=== PATIENT | male | born 1950 | race African-American/Black ===

== ENCOUNTER 2017-09-04 12:23 | Inpatient (IN) | payer MEDICARE, MEDICAID ==
[~2017-09-04] VITALS: Ht 182.9 cm; Wt 87.1 kg
[~2017-09-04 12:23] MED LIST: AMLO10TA80 PO; ASPI-1158 PO; CLON0.1T PO; COR12 PO; DIGO125T82 PO; FURO80TA87 PO; HYDR100T26 PO; ISOS30TA PO; LIP40 PO; LISI40TA4 PO; LOSA50TA3 PO; POTASSIUM PO; PROT40 PO
[2017-09-04] MEDS ORDERED: SODIUM CHLORIDE 0.9% 500 ML IV ONE (12:47)
[2017-09-04 13:56] LABS: BASOPHILS % 0.6 % (0.0-2.0); EOSINOPHILS % 1.1 % (0.0-5.0); HEMATOCRIT. 34.6 % (42.0-52.0); HEMOGLOBIN. 11.8 g/dL (14.0-18.0); LYMPHOCYTES % 16.7 % (20.0-50.0); MEAN CORPUSCULAR HEMOGLOBIN 26.8 pg (28.0-32.0); MEAN CORPUSCULAR VOLUME 78.6 fL (80.0-94.0); MONOCYTES % 14.1 % (2.0-8.0); NEUTROPHILS % 67.5 % (40.0-76.0); PLATELET 207 x1000/uL (130-400); RED CELL DISTRIBUTION WIDTH 13.5 % (11.6-14.6)
[2017-09-04 14:04] LABS: INR 1.1; PROTHROMBIN TIME 10.9 sec (9.4-11.6)
[2017-09-04 14:11] LABS: CARBON DIOXIDE 32 mEq/L (21-32); CHLORIDE 76 mEq/L (98-107); ETHANOL BLOOD < 10 mg/dL; TROPONIN I 0.21 ng/mL (0.00-0.04)
[2017-09-04 14:12] LABS: CREATINE KINASE 258 IU/L (39-308)
[2017-09-04] MEDS ORDERED: SODIUM CHLORIDE 0.9% 1,000 ML IV ONE ×2 (14:25→20:33)
[2017-09-04 14:30] LABS: DIGOXIN 0.1 ng/mL (0.9-2.0)
[2017-09-04] MEDS ORDERED: MAGNESIUM 2 G PREMIX 50 ML IV ONE (14:30)
[2017-09-04] MEDS ORDERED: KCL 20MEQ/100ML PREMIX 100 ML IV ONE (14:30)
[2017-09-04] MEDS ORDERED: ONDANSETRON HCL 4MG/2ML VIAL IV ONE (14:30)
[2017-09-04] MEDS ORDERED: MORPHINE SULFATE 4 MG/ML CPJ (NOT FOR IM USE) IV ONE (14:30)
[2017-09-04 16:12] LABS: AMMONIA 29 uMol/L (<32)
[2017-09-04 16:14] LABS: CLARITY URINE CLOUDY (CLEAR); COLOR URINE YELLOW (YELLOW); GLUCOSE URINE NEGATIVE (NEGATIVE); KETONES URINE NEGATIVE (NEGATIVE); LEUKOCYTE ESTERASE URINE NEGATIVE (NEGATIVE); NITRITE URINE NEGATIVE (NEGATIVE); OCCULT BLOOD URINE 2+ (NEGATIVE); PROTEIN URINE 2+ (NEGATIVE); SPECIFIC GRAVITY URINE 1.015 (1.005-1.030); UROBILINOGEN URINE 0.2 E.U./dL (0.2-1.0)
[2017-09-04 16:25] LABS: *AMPHETAMINES SCREEN URINE NEGATIVE (NEGATIVE); *BARBITURATES SCREEN URINE NEGATIVE (NEGATIVE); *BENZODIAZEPINES SCREEN URINE NEGATIVE (NEGATIVE); *COCAINE SCREEN URINE NEGATIVE (NEGATIVE); CANNABINOID URINE SCREEN NEGATIVE (NEGATIVE); METHADONE URINE SCREEN NEGATIVE (NEGATIVE); OPIATES URINE SCREEN NEGATIVE (NEGATIVE); PHENCYCLIDINE URINE SCREEN NEGATIVE (NEGATIVE)
[2017-09-04] MEDS ORDERED: ASPIRIN 325MG TABLET PO SCH (20:15)
[2017-09-04] MEDS ORDERED: KCL 20MEQ/100ML PREMIX 100 ML IV SCH (20:35)
[2017-09-04] MEDS ORDERED: ASPIRIN 81MG TABLET PO SCH (20:40)
[2017-09-04] MEDS: HYDRALAZINE HCL 50MG TABLET PO SCH (22:50)
[2017-09-04] MEDS: PANTOPRAZOLE 40MG DR TABLET PO SCH (22:50)
[2017-09-04] MEDS: LEVOFLOXACIN 250MG PREMIX 50 ML IV SCH (22:51)
[2017-09-04] MEDS: MORPHINE SULFATE 2 MG/ML CPJ (NOT FOR IM USE) IV PRN (22:52)
[2017-09-04 23:31] VITALS: BP 141/87
[2017-09-05] VITALS: BP 132/67
[2017-09-05 04:46] VITALS: BP 138/77
[2017-09-05] MEDS: PANTOPRAZOLE 40MG DR TABLET PO SCH ×2 (06:09→20:21)
[2017-09-05] MEDS: HYDRALAZINE HCL 50MG TABLET PO SCH ×2 (09:04→20:21)
[2017-09-05 09:05] VITALS: BP 141/71
[2017-09-05 11:20] LABS: HEMATOCRIT. 32.6 % (42.0-52.0); HEMOGLOBIN. 11.1 g/dL (14.0-18.0); MEAN CORPUSCULAR HEMOGLOBIN 26.9 pg (28.0-32.0); MEAN CORPUSCULAR VOLUME 79.2 fL (80.0-94.0); MEAN PLATELET VOLUME 12.3 fl (7.4-10.4); PLATELET 205 x1000/uL (130-400); RED BLOOD CELL COUNT 4.12 mill/uL (4.7-6.1); RED CELL DISTRIBUTION WIDTH 13.1 % (11.6-14.6)
[2017-09-05 11:37] LABS: CARBON DIOXIDE 26 mEq/L (21-32); CHLORIDE 84 mEq/L (98-107)
[2017-09-05 12:30] VITALS: BP 134/70
[2017-09-05] MEDS ORDERED: POTASSIUM CHLORIDE 20MEQ TABLET SR PO NR (12:30)
[2017-09-05 13:29] LABS: PLATELET ESTIMATE NORMAL
[2017-09-05] MEDS ORDERED: SODIUM CHLORIDE 0.9% 1,000 ML IV SCH (16:45)
[2017-09-05 17:33] VITALS: BP 127/65
[2017-09-05] MEDS ORDERED: KCL 20MEQ/100ML PREMIX 100 ML IV NR (20:00)
[2017-09-05] MEDS: SODIUM CHL 0.9% + KCL 20MEQ/L 1,000 ML IV SCH (20:21)
[2017-09-05 20:33] VITALS: BP 140/75
[2017-09-05 21:15] LABS: CREATINE KINASE 249 IU/L (39-308)
[2017-09-06 00:22] VITALS: BP 143/68
[2017-09-06 04:00] VITALS: BP 144/68
[2017-09-06] MEDS: SODIUM CHL 0.9% + KCL 20MEQ/L 1,000 ML IV SCH ×2 (04:20→17:33)
[2017-09-06] MEDS: PANTOPRAZOLE 40MG DR TABLET PO SCH ×2 (06:16→22:38)
[2017-09-06 06:40] LABS: HEMATOCRIT. 28.5 % (42.0-52.0); HEMOGLOBIN. 9.3 g/dL (14.0-18.0); MEAN CORPUSCULAR HEMOGLOBIN 26.1 pg (28.0-32.0); MEAN PLATELET VOLUME 11.9 fl (7.4-10.4); PLATELET 213 x1000/uL (130-400); RED BLOOD CELL COUNT 3.56 mill/uL (4.7-6.1)
[2017-09-06 07:15] LABS: CARBON DIOXIDE 21 mEq/L (21-32); CHLORIDE 89 mEq/L (98-107)
[2017-09-06 08:00] VITALS: BP 148/70
[2017-09-06] MEDS: HYDRALAZINE HCL 50MG TABLET PO SCH ×2 (09:39→22:38)
[2017-09-06] MEDS ORDERED: FUROSEMIDE 20MG/2ML VIAL IVP SCH (12:00)
[2017-09-06] MEDS ORDERED: FUROSEMIDE 20MG/2ML VIAL ONE (12:29)
[2017-09-06 13:27] LABS: NUCLEATED RED BLOOD CELLS 1 /100 WBC; PLATELET ESTIMATE NORMAL
[2017-09-06] MEDS ORDERED: EPOETIN ALFA 10000UNITS/ML VIAL SUBCUT SCH (14:00)
[2017-09-06] MEDS ORDERED: DEXTROSE 50% WATER 50ML SYRINGE IV PRN (17:15)
[2017-09-06] MEDS: BLOOD SUGAR DIAGNOSTIC STRIP TEST SCH ×2 (17:35→21:12)
[2017-09-06] MEDS: INSULIN LISPRO 100 UNITS/ML SUBCUT SCH ×2 (17:35→22:35)
[2017-09-06 20:00] VITALS: BP 143/69
[2017-09-06] MEDS: INSULIN DETEMIR UD 100 UNITS/ML SYR SUBCUT SCH (23:21)
[2017-09-07] VITALS: BP 143/70
[2017-09-07] MEDS: LEVOFLOXACIN 250MG PREMIX 50 ML IV SCH ×2 (00:19→00:24)
[2017-09-07] MEDS: SODIUM CHL 0.9% + KCL 20MEQ/L 1,000 ML IV SCH ×2 (03:25→06:51)
[2017-09-07 04:00] VITALS: BP 136/73
[2017-09-07 06:36] LABS: BASOPHILS % 0.6 % (0.0-2.0); EOSINOPHILS % 1.4 % (0.0-5.0); HEMATOCRIT. 24.4 % (42.0-52.0); HEMOGLOBIN. 8.3 g/dL (14.0-18.0); LYMPHOCYTES % 9.3 % (20.0-50.0); MEAN CORPUSCULAR HEMOGLOBIN 27.2 pg (28.0-32.0); MEAN CORPUSCULAR VOLUME 80.1 fL (80.0-94.0); MEAN PLATELET VOLUME 12.1 fl (7.4-10.4); MONOCYTES % 12.2 % (2.0-8.0); NEUTROPHILS % 76.5 % (40.0-76.0); PLATELET 191 x1000/uL (130-400); RED BLOOD CELL COUNT 3.05 mill/uL (4.7-6.1)
[2017-09-07] MEDS: BLOOD SUGAR DIAGNOSTIC STRIP TEST SCH ×4 (06:42→21:00)
[2017-09-07] MEDS: PANTOPRAZOLE 40MG DR TABLET PO SCH ×2 (06:49→22:16)
[2017-09-07] MEDS: INSULIN LISPRO 100 UNITS/ML SUBCUT SCH ×4 (07:50→21:00)
[2017-09-07 08:00] VITALS: BP 150/69
[2017-09-07 08:23] LABS: CARBON DIOXIDE 26 mEq/L (21-32); CHLORIDE 94 mEq/L (98-107)
[2017-09-07 08:24] LABS: PHOSPHORUS 4.6 mg/dL (2.5-4.9)
[2017-09-07] MEDS: HYDRALAZINE HCL 50MG TABLET PO SCH ×2 (10:04→22:16)
[2017-09-07 11:29] VITALS: BP 139/72
[2017-09-07] MEDS ORDERED: POTASSIUM CHLORIDE 20MEQ TABLET SR PO NR (11:30)
[2017-09-07] MEDS ORDERED: MANNITOL 12.5G (25%) VIAL 50ML IV NR (16:15)
[2017-09-07 16:18] VITALS: BP 129/70
[2017-09-07 17:14] LABS: TOTAL IRON BINDING CAPACITY 185 ug/dL (250-450)
[2017-09-07] MEDS ORDERED: HEPARIN SODIUM 1,000 UNIT/1ML VIAL IV NR (18:00)
[2017-09-07 18:18] LABS: HEPATITIS B SURFACE AB < 3.1 mIU/mL
[2017-09-07 18:29] LABS: HEPATITIS B SURFACE ANTIGEN NEGATIVE
[2017-09-07 20:00] VITALS: BP 144/85
[2017-09-07] MEDS: INSULIN DETEMIR UD 100 UNITS/ML SYR SUBCUT SCH (22:00)
[2017-09-08] VITALS (16 sets, daily range): BP systolic 103–175; BP diastolic 50–93
[2017-09-08] MEDS: SODIUM CHL 0.9% + KCL 20MEQ/L 1,000 ML IV SCH (00:50)
[2017-09-08] MEDS: MORPHINE SULFATE 2 MG/ML CPJ (NOT FOR IM USE) IV PRN (01:02)
[2017-09-08 06:51] LABS: BASOPHILS % 0.3 % (0.0-2.0); LYMPHOCYTES % 11.6 % (20.0-50.0); MEAN CORPUSCULAR HEMOGLOBIN 27.2 pg (28.0-32.0); MEAN PLATELET VOLUME 11.5 fl (7.4-10.4); MONOCYTES % 11.6 % (2.0-8.0); NEUTROPHILS % 75.5 % (40.0-76.0); PLATELET 169 x1000/uL (130-400); RED BLOOD CELL COUNT 2.49 mill/uL (4.7-6.1); RED CELL DISTRIBUTION WIDTH 13.6 % (11.6-14.6)
[2017-09-08 07:00] LABS: HEMATOCRIT. 20.7 % (42.0-52.0); HEMOGLOBIN. 6.8 g/dL (14.0-18.0)
[2017-09-08] MEDS: BLOOD SUGAR DIAGNOSTIC STRIP TEST SCH ×4 (07:19→21:00)
[2017-09-08] MEDS ORDERED: LACTULOSE 20G/30ML UDC PO NR (08:30)
[2017-09-08] MEDS ORDERED: LACTULOSE 20G/30ML UDC PO PRN (08:30)
[2017-09-08] MEDS: PANTOPRAZOLE 40MG DR TABLET PO SCH ×2 (09:27→23:11)
[2017-09-08] MEDS: HYDRALAZINE HCL 50MG TABLET PO SCH ×2 (09:27→21:00)
[2017-09-08] MEDS: INSULIN LISPRO 100 UNITS/ML SUBCUT SCH ×4 (09:30→23:15)
[2017-09-08] MEDS ORDERED: LIDOCAINE HCL 1% 20ML VIAL (Pyxis) INJ ONE (10:04)
[2017-09-08] MEDS ORDERED: SODIUM BICARBONATE 4% (2.4MEQ) 5ML VIAL IV ONE (10:04)
[2017-09-08] MEDS ORDERED: FENTANYL CITRATE/PF 50MCG/ML 2ML VIAL IV ONE (10:35)
[2017-09-08] MEDS ORDERED: FENTANYL CITRATE/PF 50MCG/ML 2ML VIAL ONE (10:45)
[2017-09-08] MEDS ORDERED: HYDROCODONE/ACETAMINOPHEN 5/325MG TABLET PO PRN (11:00)
[2017-09-08] MEDS: LEVOFLOXACIN 250MG TABLET PO SCH (13:04)
[2017-09-08] MEDS: LOSARTAN POTASSIUM 25 MG TABLET PO SCH (13:04)
[2017-09-08] MEDS ORDERED: ACETAMINOPHEN 325MG TABLET PO PRN (18:30)
[2017-09-08 22:44] LABS: HEMATOCRIT 22.2 % (42.0-52.0); HEMOGLOBIN 7.4 g/dL (14.0-18.0)
[2017-09-08] MEDS: CARVEDILOL 3.125 MG TABLET PO SCH (23:12)
[2017-09-08] MEDS: INSULIN DETEMIR UD 100 UNITS/ML SYR SUBCUT SCH (23:16)
[2017-09-09] VITALS: BP 130/67
[2017-09-09 04:00] VITALS: BP 133/69
[2017-09-09] MEDS: BLOOD SUGAR DIAGNOSTIC STRIP TEST SCH ×4 (06:22→21:00)
[2017-09-09] MEDS: PANTOPRAZOLE 40MG DR TABLET PO SCH ×2 (06:22→23:51)
[2017-09-09 06:57] LABS: BASOPHILS % 0.5 % (0.0-2.0); EOSINOPHILS % 1.2 % (0.0-5.0); HEMATOCRIT. 21.5 % (42.0-52.0); HEMOGLOBIN. 7.3 g/dL (14.0-18.0); LYMPHOCYTES % 11.3 % (20.0-50.0); MEAN CORPUSCULAR HEMOGLOBIN 28.5 pg (28.0-32.0); MEAN CORPUSCULAR VOLUME 84.1 fL (80.0-94.0); MEAN PLATELET VOLUME 10.8 fl (7.4-10.4); MONOCYTES % 11.2 % (2.0-8.0); NEUTROPHILS % 75.8 % (40.0-76.0); PLATELET 161 x1000/uL (130-400); RED BLOOD CELL COUNT 2.56 mill/uL (4.7-6.1); RED CELL DISTRIBUTION WIDTH 13.4 % (11.6-14.6)
[2017-09-09 08:00] VITALS: BP 137/70
[2017-09-09] MEDS: LOSARTAN POTASSIUM 25 MG TABLET PO SCH (10:03)
[2017-09-09] MEDS: HYDRALAZINE HCL 50MG TABLET PO SCH ×2 (10:04→23:50)
[2017-09-09] MEDS: CARVEDILOL 3.125 MG TABLET PO SCH ×2 (10:04→23:52)
[2017-09-09] MEDS: INSULIN LISPRO 100 UNITS/ML SUBCUT SCH ×3 (10:08→17:50)
[2017-09-09 12:00] VITALS: BP 140/78
[2017-09-09 16:00] VITALS: BP 131/78
[2017-09-09 20:00] VITALS: BP 135/71
[2017-09-10] VITALS: BP 150/81
[2017-09-10] MEDS: INSULIN LISPRO 100 UNITS/ML SUBCUT SCH ×5 (00:05→21:17)
[2017-09-10] MEDS: EPOETIN ALFA 10000UNITS/ML VIAL SUBCUT SCH (00:08)
[2017-09-10 00:57] VITALS: BP 129/67
[2017-09-10] MEDS: BLOOD SUGAR DIAGNOSTIC STRIP TEST SCH ×4 (07:20→21:00)
[2017-09-10 08:00] VITALS: BP 133/74
[2017-09-10 09:30] LABS: BASOPHILS % 0.6 % (0.0-2.0); EOSINOPHILS % 1.1 % (0.0-5.0); HEMATOCRIT. 26.7 % (42.0-52.0); HEMOGLOBIN. 8.8 g/dL (14.0-18.0); MEAN CORPUSCULAR HEMOGLOBIN 28.5 pg (28.0-32.0); MEAN CORPUSCULAR VOLUME 86.1 fL (80.0-94.0); MEAN PLATELET VOLUME 10.4 fl (7.4-10.4); MONOCYTES % 11.5 % (2.0-8.0); NEUTROPHILS % 75.8 % (40.0-76.0); PLATELET 160 x1000/uL (130-400); RED CELL DISTRIBUTION WIDTH 14.8 % (11.6-14.6)
[2017-09-10] MEDS: CARVEDILOL 3.125 MG TABLET PO SCH ×2 (09:37→21:16)
[2017-09-10] MEDS: HYDRALAZINE HCL 50MG TABLET PO SCH ×2 (09:37→21:15)
[2017-09-10] MEDS: LOSARTAN POTASSIUM 25 MG TABLET PO SCH (09:37)
[2017-09-10] MEDS: PANTOPRAZOLE 40MG DR TABLET PO SCH ×2 (09:38→21:16)
[2017-09-10 12:00] VITALS: BP 157/85
[2017-09-10] MEDS: LEVOFLOXACIN 250MG TABLET PO SCH (13:21)
[2017-09-10 16:00] VITALS: BP 126/61
[2017-09-10 20:00] VITALS: BP 144/76
[2017-09-10] MEDS: INSULIN DETEMIR UD 100 UNITS/ML SYR SUBCUT SCH ×2 (21:16)
[2017-09-11] VITALS (7 sets, daily range): BP systolic 98–176; BP diastolic 50–99
[2017-09-11] MEDS: BLOOD SUGAR DIAGNOSTIC STRIP TEST SCH ×4 (05:59→21:00)
[2017-09-11] MEDS: PANTOPRAZOLE 40MG DR TABLET PO SCH ×2 (05:59→22:15)
[2017-09-11] MEDS: CARVEDILOL 3.125 MG TABLET PO SCH ×2 (08:48→22:14)
[2017-09-11] MEDS: LOSARTAN POTASSIUM 25 MG TABLET PO SCH ×2 (08:48→22:15)
[2017-09-11] MEDS: INSULIN LISPRO 100 UNITS/ML SUBCUT SCH ×4 (08:55→22:16)
[2017-09-11] MEDS: HYDRALAZINE HCL 50MG TABLET PO SCH ×2 (08:57→22:14)
[2017-09-11 12:42] LABS: BASOPHILS % 0.6 % (0.0-2.0); EOSINOPHILS % 1.8 % (0.0-5.0); HEMATOCRIT. 26.3 % (42.0-52.0); HEMOGLOBIN. 8.7 g/dL (14.0-18.0); LYMPHOCYTES % 12.3 % (20.0-50.0); MEAN CORPUSCULAR HEMOGLOBIN 28.4 pg (28.0-32.0); MEAN CORPUSCULAR VOLUME 86.3 fL (80.0-94.0); NEUTROPHILS % 74.3 % (40.0-76.0); PLATELET 174 x1000/uL (130-400); RED BLOOD CELL COUNT 3.05 mill/uL (4.7-6.1); RED CELL DISTRIBUTION WIDTH 14.7 % (11.6-14.6)
[2017-09-11] MEDS: EPOETIN ALFA 10000UNITS/ML VIAL SUBCUT SCH (22:17)
[2017-09-11] MEDS: INSULIN DETEMIR UD 100 UNITS/ML SYR SUBCUT SCH (22:17)
[2017-09-11] MEDS ORDERED: LACTULOSE 20G/30ML UDC PO NR (23:00)
[2017-09-11] MEDS ORDERED: BISACODYL 5MG TABLET PO NR (23:00)
[2017-09-12] VITALS: BP 167/91
[2017-09-12 04:00] VITALS: BP 148/90
[2017-09-12] MEDS: PANTOPRAZOLE 40MG DR TABLET PO SCH ×2 (06:47→21:10)
[2017-09-12] MEDS: INSULIN LISPRO 100 UNITS/ML SUBCUT SCH ×4 (07:50→21:11)
[2017-09-12] MEDS: BLOOD SUGAR DIAGNOSTIC STRIP TEST SCH ×4 (08:05→21:00)
[2017-09-12 08:10] VITALS: BP 174/85
[2017-09-12] MEDS: LOSARTAN POTASSIUM 25 MG TABLET PO SCH ×2 (09:12→21:10)
[2017-09-12] MEDS: HYDRALAZINE HCL 50MG TABLET PO SCH ×3 (09:12→16:51)
[2017-09-12] MEDS: CARVEDILOL 3.125 MG TABLET PO SCH ×2 (09:13→21:10)
[2017-09-12 09:20] LABS: CHLORIDE 110 mEq/L (98-107)
[2017-09-12 09:40] LABS: CARBON DIOXIDE 25 mEq/L (21-32)
[2017-09-12 12:00] VITALS: BP 137/72
[2017-09-12] MEDS ORDERED: LACTULOSE 20G/30ML UDC PO PRN (12:45)
[2017-09-12] MEDS: DOCUSATE SODIUM 100MG CAPSULE PO SCH (16:50)
[2017-09-12 20:00] VITALS: BP 158/74
[2017-09-12] MEDS: INSULIN DETEMIR UD 100 UNITS/ML SYR SUBCUT SCH (21:12)
[2017-09-13] VITALS: BP 152/60
[2017-09-13 04:00] VITALS: BP 162/100
[2017-09-13] MEDS: BLOOD SUGAR DIAGNOSTIC STRIP TEST SCH ×4 (06:26→21:00)
[2017-09-13] MEDS: PANTOPRAZOLE 40MG DR TABLET PO SCH ×2 (06:26→21:28)
[2017-09-13] MEDS ORDERED: CLONIDINE 0.1MG TABLET PO PRN (06:45)
[2017-09-13] MEDS: INSULIN LISPRO 100 UNITS/ML SUBCUT SCH ×4 (07:36→21:00)
[2017-09-13 08:07] LABS: BASOPHILS % 0.9 % (0.0-2.0); EOSINOPHILS % 2.3 % (0.0-5.0); HEMATOCRIT. 28.8 % (42.0-52.0); HEMOGLOBIN. 9.7 g/dL (14.0-18.0); LYMPHOCYTES % 14.2 % (20.0-50.0); MEAN CORPUSCULAR HEMOGLOBIN 29.6 pg (28.0-32.0); MEAN CORPUSCULAR VOLUME 87.6 fL (80.0-94.0); MEAN PLATELET VOLUME 10.2 fl (7.4-10.4); MONOCYTES % 10.9 % (2.0-8.0); NEUTROPHILS % 71.7 % (40.0-76.0); PLATELET 276 x1000/uL (130-400); RED BLOOD CELL COUNT 3.28 mill/uL (4.7-6.1); RED CELL DISTRIBUTION WIDTH 15.8 % (11.6-14.6)
[2017-09-13 08:45] VITALS: BP 135/81
[2017-09-13] MEDS: HYDRALAZINE HCL 50MG TABLET PO SCH ×3 (09:11→16:32)
[2017-09-13] MEDS: LOSARTAN POTASSIUM 25 MG TABLET PO SCH ×2 (09:11→21:28)
[2017-09-13] MEDS: CARVEDILOL 3.125 MG TABLET PO SCH ×2 (09:12→21:28)
[2017-09-13] MEDS: DOCUSATE SODIUM 100MG CAPSULE PO SCH ×2 (09:12→16:27)
[2017-09-13 13:31] VITALS: BP 157/84
[2017-09-13] MEDS ORDERED: POTASSIUM CHLORIDE 20MEQ TABLET SR PO NR (14:15)
[2017-09-13 16:00] VITALS: BP 136/65
[2017-09-13 20:00] VITALS: BP 149/80
[2017-09-13] MEDS: INSULIN DETEMIR UD 100 UNITS/ML SYR SUBCUT SCH (21:29)
[2017-09-14] VITALS: BP 149/68
[2017-09-14 04:00] VITALS: BP 141/78
[2017-09-14 05:40] VITALS: BP 116/71
[2017-09-14] MEDS: PANTOPRAZOLE 40MG DR TABLET PO SCH (06:10)
[2017-09-14] MEDS: BLOOD SUGAR DIAGNOSTIC STRIP TEST SCH (06:10)
[2017-09-14 07:06] LABS: BASOPHILS % 0.6 % (0.0-2.0); EOSINOPHILS % 1.4 % (0.0-5.0); HEMATOCRIT. 30.7 % (42.0-52.0); HEMOGLOBIN. 10.1 g/dL (14.0-18.0); MEAN CORPUSCULAR HEMOGLOBIN 29.4 pg (28.0-32.0); MEAN CORPUSCULAR VOLUME 88.8 fL (80.0-94.0); MEAN PLATELET VOLUME 9.8 fl (7.4-10.4); MONOCYTES % 10.6 % (2.0-8.0); NEUTROPHILS % 75.4 % (40.0-76.0); PLATELET 208 x1000/uL (130-400); RED BLOOD CELL COUNT 3.45 mill/uL (4.7-6.1); RED CELL DISTRIBUTION WIDTH 15.7 % (11.6-14.6)
[2017-09-14] MEDS: CARVEDILOL 3.125 MG TABLET PO SCH (07:52)
[2017-09-14] MEDS: HYDRALAZINE HCL 50MG TABLET PO SCH ×2 (07:52→08:27)
[2017-09-14] MEDS: LOSARTAN POTASSIUM 25 MG TABLET PO SCH (07:52)
[2017-09-14 08:00] VITALS: BP 93/57
[2017-09-14] MEDS: INSULIN LISPRO 100 UNITS/ML SUBCUT SCH (08:29)
[2017-09-14] MEDS: DOCUSATE SODIUM 100MG CAPSULE PO SCH (08:30)
[2017-09-14 11:30] VITALS: BP 153/80
[2017-09-14 11:38] VITALS: BP 153/80
== END 2017-09-14 13:10 | DRG 438 ==
LOC: ER 14:30 → 6WST 14:34 → ER 15:42 → ENRESERV 17:57 → 6WST 09-13 10:00
PROVIDERS: ADMIT Internal Medicine; ATTEND Internal Medicine
PROC: 05HM33Z Insertion of Infusion Device into Right Internal Jugular Vein, Percutaneous Approach (ICD-10-PCS; principal; 2017-09-07)
PROC: B543ZZA Ultrasonography of Right Jugular Veins, Guidance (ICD-10-PCS; 2017-09-07)
PROC: 02HV33Z Insertion of Infusion Device into Superior Vena Cava, Percutaneous Approach (ICD-10-PCS; 2017-09-08)
PROC: B5181ZA Fluoroscopy of Superior Vena Cava using Low Osmolar Contrast, Guidance (ICD-10-PCS; 2017-09-08)
PROC: 30233N1 Transfusion of Nonautologous Red Blood Cells into Peripheral Vein, Percutaneous Approach (ICD-10-PCS; 2017-09-10)
DX: K85.90 Acute pancreatitis without necrosis or infection, unspecified (principal); G93.40 Encephalopathy, unspecified; N17.9 Acute kidney failure, unspecified; I13.0 Hypertensive heart and chronic kidney disease with heart failure and stage 1 through stage 4 chronic kidney disease, or unspecified chronic kidney disease; E11.22 Type 2 diabetes mellitus with diabetic chronic kidney disease; R65.10 Systemic inflammatory response syndrome (SIRS) of non-infectious origin without acute organ dysfunction; I50.9 Heart failure, unspecified; N18.6 End stage renal disease; N39.0 Urinary tract infection, site not specified; D72.829 Elevated white blood cell count, unspecified; E79.0 Hyperuricemia without signs of inflammatory arthritis and tophaceous disease; E87.6 Hypokalemia; D64.9 Anemia, unspecified; E86.0 Dehydration; Z75.1 Person awaiting admission to adequate facility elsewhere; Z79.899 Other long term (current) drug therapy; Z79.82 Long term (current) use of aspirin; Z86.73 Personal history of transient ischemic attack (TIA), and cerebral infarction without residual deficits
CPT/HCPCS: 36415; 36556; 36558; 36589; 70450; 71010; 72100; 76700; 76770; 76937; 77001; 78707; 80048; 80053; 80162; 80305; 80307; 80329; 81001; 82140; 82550; 82962; 83036; 83540; 83550; 83605; 83690; 83735; 83880; 83970; 84100; 84443; 84484; 84550; 85014; 85018; 85025; 85610; 86705; 86706; 86803; 86850; 86900; 86920; 87040; 87086; 87340; 93005; 93970; 96365; 97110; 97116; 97162; 97165; 97530; 97535; 99285; A9562; C1750; C1752; C1769; G0482; J0885; J1642; J1644; J1815; J1940; J1956; J2150; J2270; J2405; J3010; J3475; J3480; J3490; J7030; J7040; J7050; P9016; A4315

== ENCOUNTER 2019-03-07 11:21 | Inpatient (IN) | payer MEDICARE, MEDICAID ==
[~2019-03-07] VITALS: Ht 172.7 cm; Wt 91.2 kg
[2019-03-07] MEDS ORDERED: SODIUM CHLORIDE 0.9% 500 ML IV ONE (11:44)
[2019-03-07 13:27] LABS: BASOPHILS % 0.7 % (0.0-2.0); EOSINOPHILS % 1.6 % (0.0-5.0); HEMATOCRIT. 30.9 % (42.0-52.0); HEMOGLOBIN. 10.2 g/dL (14.0-18.0); LYMPHOCYTES % 17.1 % (20.0-50.0); MEAN CORPUSCULAR HEMOGLOBIN 30.1 pg (28.0-32.0); MEAN CORPUSCULAR VOLUME 90.8 fL (80.0-94.0); MEAN PLATELET VOLUME 9.2 fl (7.4-10.4); MONOCYTES % 11.7 % (2.0-8.0); NEUTROPHILS % 68.9 % (40.0-76.0); PLATELET 200 x1000/uL (130-400); RED CELL DISTRIBUTION WIDTH 14.2 % (11.6-14.6)
[2019-03-07 13:31] LABS: CHLORIDE 101 mEq/L (98-107)
[2019-03-07] MEDS ORDERED: ASPIRIN 325MG EC TABLET PO NR (14:00)
[2019-03-07] MEDS ORDERED: IOHEXOL-350 100 ML BOTTLE ONE (14:59)
[2019-03-07] MEDS ORDERED: ACETAMINOPHEN 325MG TABLET PO PRN (15:15)
[2019-03-07] MEDS ORDERED: GUAIFENESIN 200MG/10ML SUGAR FREE UDC PO PRN (15:15)
[2019-03-07] MEDS ORDERED: ONDANSETRON HCL 4MG/2ML INJ IV PRN (15:15)
[2019-03-07] MEDS ORDERED: IPRATROPIUM/ALBUTEROL 0.5-3(2.5)MG/3ML NEB INH PRN (15:15)
[2019-03-07] MEDS ORDERED: CLONIDINE 0.1MG TABLET PO PRN (15:15)
[2019-03-07] MEDS ORDERED: DEXTROSE 50% WATER 50ML SYRINGE IV PRN (15:15)
[2019-03-07] MEDS ORDERED: HYDROCODONE/ACETAMINOPHEN 5/325MG TABLET PO PRN (15:15)
[2019-03-07] MEDS ORDERED: DOCUSATE SODIUM 100MG CAPSULE PO PRN (15:15)
[2019-03-07] MEDS ORDERED: DIPHENHYDRAMINE 50MG/ML VIAL IV PRN (15:15)
[2019-03-07] MEDS ORDERED: LORAZEPAM 0.5MG TABLET PO PRN (15:15)
[2019-03-07] MEDS ORDERED: MAGNESIUM/ALUMINUM HYDROXIDE/SIMETHICONE 30ML UDC PO PRN (15:15)
[2019-03-07] MEDS ORDERED: ACETAMINOPHEN 650MG SUPP PR PRN (15:15)
[2019-03-07 16:35] VITALS: BP 112/69
[2019-03-07 16:35] LABS: PHOSPHORUS 4.9 mg/dL (2.5-4.9)
[2019-03-07 16:46] LABS: PROTHROMBIN TIME 10.4 sec (9.6-11.0)
[2019-03-07] MEDS ORDERED: MIDODRINE HCL 5MG TABLET PO NR (17:15)
[2019-03-07] MEDS ORDERED: LOSA50TA20 PO (17:54)
[2019-03-07] MEDS ORDERED: CARV25TA47 PO (17:54)
[2019-03-07] MEDS ORDERED: ASPI-1159 PO (17:54)
[2019-03-07] MEDS: BLOOD SUGAR DIAGNOSTIC STRIP TEST SCH ×2 (17:59→21:05)
[2019-03-07] MEDS: INSULIN LISPRO 100 UNITS/ML SUBCUT SCH ×2 (18:50→21:00)
[2019-03-07 20:00] VITALS: BP 102/51
[2019-03-07] MEDS ORDERED: NA PHOS,M-B/NA PHOS,DI-BA ENEMA 118ML PR PRN (21:00)
[2019-03-07] MEDS: HEPARIN 5000 UNITS/ML VIAL SUBCUT SCH (21:05)
[2019-03-07 22:00] VITALS: BP 131/73
[2019-03-07 23:35] LABS: CREATINE KINASE MB FRACTION 9.2 ng/mL (0.5-3.6)
[2019-03-07 23:51] VITALS: BP 136/68
[2019-03-08] VITALS (7 sets, daily range): BP systolic 82–178; BP diastolic 68–86
[2019-03-08] MEDS: BLOOD SUGAR DIAGNOSTIC STRIP TEST SCH ×3 (06:16→17:12)
[2019-03-08 06:58] LABS: BASOPHILS % 0.7 % (0.0-2.0); EOSINOPHILS % 1.3 % (0.0-5.0); HEMATOCRIT. 32.4 % (42.0-52.0); HEMOGLOBIN. 10.8 g/dL (14.0-18.0); LYMPHOCYTES % 19.7 % (20.0-50.0); MEAN CORPUSCULAR HEMOGLOBIN 30.1 pg (28.0-32.0); MEAN CORPUSCULAR VOLUME 90.6 fL (80.0-94.0); MEAN PLATELET VOLUME 9.7 fl (7.4-10.4); NEUTROPHILS % 69.3 % (40.0-76.0); PLATELET 196 x1000/uL (130-400); RED BLOOD CELL COUNT 3.58 mill/uL (4.7-6.1); RED CELL DISTRIBUTION WIDTH 14.6 % (11.6-14.6)
[2019-03-08] MEDS ORDERED: MIDODRINE HCL 5MG TABLET PO PRN (07:00)
[2019-03-08 07:12] LABS: CHLORIDE 102 mEq/L (98-107)
[2019-03-08] MEDS: INSULIN LISPRO 100 UNITS/ML SUBCUT SCH ×2 (07:40→12:40)
[2019-03-08 07:47] LABS: CREATINE KINASE 202 IU/L (39-308); T4 FREE 1.02 ng/dL (0.76-1.46)
[2019-03-08 07:48] LABS: CREATINE KINASE MB FRACTION 9.7 ng/mL (0.5-3.6); HDL CHOLESTEROL 68 mg/dL (40-59)
[2019-03-08 07:49] LABS: LDL CHOLESTEROL 111 mg/dL (5-100)
[2019-03-08] MEDS: HEPARIN 5000 UNITS/ML VIAL SUBCUT SCH (08:42)
[2019-03-08] MEDS ORDERED: ASPIRIN 81MG EC TABLET PO SCH (09:00)
[2019-03-08] MEDS ORDERED: REGADENOSON 0.4 MG/5 ML IV NR (09:45)
[2019-03-08] MEDS ORDERED: CARVEDILOL 3.125 MG TABLET PO SCH (09:45)
[2019-03-08] MEDS ORDERED: REGADENOSON 0.4 MG/5 ML IV ONE (11:07)
[2019-03-08] MEDS ORDERED: CLONIDINE 0.1MG TABLET PO SCH (13:00)
[2019-03-08] MEDS ORDERED: LOSARTAN POTASSIUM 50 MG TABLET PO SCH (21:00)
[2019-03-08] MEDS ORDERED: ATORVASTATIN CALCIUM 10MG TABLET PO SCH (21:00)
== END 2019-03-08 17:53 | disposition home or self-care (01) | DRG 73 ==
LOC: ER 11:21 → 8WST 13:46 → EDBEDREQTM 13:47 → EDBEDREQ 13:47 → ENRESERV 15:16
PROVIDERS: ADMIT Internal Medicine; ATTEND Internal Medicine
DX: G90.8 Other disorders of autonomic nervous system (principal); N18.6 End stage renal disease; I50.43 Acute on chronic combined systolic (congestive) and diastolic (congestive) heart failure; I13.2 Hypertensive heart and chronic kidney disease with heart failure and with stage 5 chronic kidney disease, or end stage renal disease; I95.3 Hypotension of hemodialysis; E86.9 Volume depletion, unspecified; R59.9 Enlarged lymph nodes, unspecified; I44.7 Left bundle-branch block, unspecified; E78.5 Hyperlipidemia, unspecified; D64.9 Anemia, unspecified; K80.20 Calculus of gallbladder without cholecystitis without obstruction; R94.31 Abnormal electrocardiogram [ECG] [EKG]; K44.9 Diaphragmatic hernia without obstruction or gangrene; E11.22 Type 2 diabetes mellitus with diabetic chronic kidney disease; Z99.2 Dependence on renal dialysis; Z79.4 Long term (current) use of insulin
CPT/HCPCS: 36415; 71045; 71275; 78452; 80061; 82550; 82553; 82962; 83036; 83605; 83735; 83880; 84100; 84439; 84443; 84484; 93005; 93017; 93306; 93970; 96360; 97161; 99285; A9500; J1644; J1815; J2405; J2785; J7030; Q9967

== ENCOUNTER 2021-05-06 07:27 | Inpatient (IN) | payer MEDICARE, MEDICAID ==
[~2021-05-06] VITALS: Ht 172.7 cm; Wt 80.4 kg
[2021-05-06] VITALS (44 sets, daily range): BP systolic 90–158; BP diastolic 28–118
[~2021-05-06 07:27] MED LIST changes: -AMLO10TA80 PO; -ASPI-1158 PO; +ASPI-1497 PO; +CARV25TA47 PO; -CLON0.1T PO; -COR12 PO; -DIGO125T82 PO; -FURO80TA87 PO; -HYDR100T26 PO; -ISOS30TA PO; -LIP40 PO; -LISI40TA4 PO; -LOSA50TA3 PO; +LOSA50TA41 PO; -POTASSIUM PO; -PROT40 PO
[2021-05-06] MEDS ORDERED: ONDANSETRON HCL 4MG/2ML INJ IV STA ×2 (07:55→09:07)
[2021-05-06] MEDS ORDERED: PIPERACILLIN/TAZ 3.375G PREMIX 50 ML IV ONE (08:00)
[2021-05-06] MEDS ORDERED: SODIUM CHLORIDE 0.9% 1,000 ML IV ONE (08:00)
[2021-05-06] MEDS ORDERED: VANCOMYCIN 1 G PREMIX 200 ML IV ONE (08:00)
[2021-05-06 08:24] LABS: MEAN CORPUSCULAR HEMOGLOBIN 27.1 pg (28.0-32.0); MEAN CORPUSCULAR VOLUME 88.4 fL (80.0-94.0); MEAN PLATELET VOLUME 9.9 fl (7.4-10.4); PLATELET 266 x1000/uL (130-400); RED BLOOD CELL COUNT 1.53 mill/uL (4.7-6.1); RED CELL DISTRIBUTION WIDTH 16.4 % (11.6-14.6)
[2021-05-06 08:30] LABS: BG FRACTION INSPIRED OXYGEN 21; BG HCO3 ACT 18.1 mmol/L (22.0-26.0); BG PCO2 24.2 mmHg (35.0-45.0); BG PH 7.491 (7.350-7.450); BG PO2 113.3 mmHg (75.0-100.0); BG SAMPLE SITE RIGHT BRACHIAL; BG TOTAL HEMOGLOBIN < 4.5 g/dL (12.0-18.0); BG VENT MODE ROOM AIR
[2021-05-06] MEDS ORDERED: PANTOPRAZOLE SODIUM 40 MG/VIAL IV SCH (08:30)
[2021-05-06 08:32] LABS: CHLORIDE 110 mEq/L (98-107)
[2021-05-06 08:34] LABS: HEMATOCRIT. 13.5 % (42.0-52.0); HEMOGLOBIN. 4.1 g/dL (14.0-18.0)
[2021-05-06 08:36] LABS: INR 1.2
[2021-05-06] MEDS ORDERED: SODIUM CHLORIDE 0.9% 1000ML BAG (SEPSIS BOLUS) IV ONE (09:00)
[2021-05-06] MEDS ORDERED: MORPHINE SULFATE 4 MG/ML CPJ (NOT FOR IM USE) IV STA ×2 (09:07→09:08)
[2021-05-06] MEDS ORDERED: DEXTROSE 50% WATER 50ML SYRINGE IV ONE (10:00)
[2021-05-06] MEDS ORDERED: CALCIUM GLUCONATE 1,000 MG in DEXT 5% WATER 100 ML IV ONE (10:00)
[2021-05-06] MEDS ORDERED: INSULIN REGULAR (HUMULIN R) 300UNITS/3ML VIAL IV ONE (10:00)
[2021-05-06] MEDS ORDERED: SODIUM BICARBONATE 8.4% 1 MEQ/ML 50ML SYR IV ONE (10:00)
[2021-05-06] MEDS ORDERED: CALCIUM GLUCONATE 1GM PREMIX 50 ML IV SCH (10:15)
[2021-05-06] MEDS ORDERED: NOREPINEPHRINE 32 MG in DEXT 5% WATER 218 ML IV PRN (11:30)
[2021-05-06] MEDS ORDERED: ONDANSETRON HCL 4MG/2ML INJ IV PRN (11:30)
[2021-05-06] MEDS ORDERED: PIPERACILLIN/TAZOBACTAM 2.25 G in DEXTROSE 5% WATER 50 ML IV SCH (11:30)
[2021-05-06] MEDS ORDERED: DIPHENHYDRAMINE 50MG/ML VIAL IV PRN (11:30)
[2021-05-06] MEDS ORDERED: LORAZEPAM 2MG/ML CPJ IV PRN (11:30)
[2021-05-06] MEDS ORDERED: IPRATROPIUM/ALBUTEROL 0.5-3(2.5)MG/3ML NEB NEB PRN (11:30)
[2021-05-06] MEDS ORDERED: DEXTROSE 50% WATER 50ML SYRINGE IV PRN (11:30)
[2021-05-06 12:08] LABS: TOTAL IRON BINDING CAPACITY 142 ug/dL (250-450)
[2021-05-06 12:39] LABS: VITAMIN B12 SERUM 804 pg/mL (211-911)
[2021-05-06] MEDS: BLOOD SUGAR DIAGNOSTIC STRIP TEST SCH ×3 (13:00→21:18)
[2021-05-06] MEDS ORDERED: VANCOMYCIN 1 G PREMIX 200 ML IV SCH (13:00)
[2021-05-06] MEDS: INSULIN LISPRO 100 UNITS/ML SUBCUT SCH ×3 (13:20→21:00)
[2021-05-06 13:31] LABS: PLATELET ESTIMATE NORMAL
[2021-05-06 13:55] LABS: HEPATITIS B SURFACE ANTIGEN NEGATIVE
[2021-05-06] MEDS: PIPERACILLIN/TAZOBACTAM 2.25G in DEXTROSE 5% WATER 50ML IV SCH (14:00)
[2021-05-06] MEDS ORDERED: LIDOCAINE HCL 1% 20ML VIAL (Pyxis) INJ ONE (14:13)
[2021-05-06 14:24] LABS: HEPATITIS A AB IGM NEGATIVE (NEGATIVE)
[2021-05-06] MEDS ORDERED: VANCOMYCIN 1 G PREMIX 200 ML IV NR (14:30)
[2021-05-06 14:52] LABS: FERRITIN 3050 ng/mL (22-322)
[2021-05-06 17:43] LABS: CREATINE KINASE MB FRACTION 8.9 ng/mL (0.5-3.6)
[2021-05-06] MEDS: DEXT 5%/0.45% NACL 1000ML 1,000 ML IV SCH (18:14)
[2021-05-06 19:25] LABS: HEMOGLOBIN 8.8 g/dL (14.0-18.0)
[2021-05-06] MEDS: PANTOPRAZOLE SODIUM 40 MG/VIAL IV SCH (22:18)
[2021-05-07] VITALS (47 sets, daily range): BP systolic 126–180; BP diastolic 61–104
[2021-05-07] MEDS: PIPERACILLIN/TAZOBACTAM 2.25G in DEXTROSE 5% WATER 50ML IV SCH ×4 (00:10→23:32)
[2021-05-07] MEDS ORDERED: DILTIAZEM HCL 125 MG in DEXT 5% WATER 100 ML IV PRN (00:15)
[2021-05-07 05:55] LABS: HEMATOCRIT 24.9 % (42.0-52.0); HEMOGLOBIN 8.1 g/dL (14.0-18.0)
[2021-05-07 06:03] LABS: CHLORIDE 106 mEq/L (98-107)
[2021-05-07 06:15] LABS: HDL CHOLESTEROL 41 mg/dL (40-59); LDL CHOLESTEROL 51 mg/dL (5-100); T4 FREE 0.81 ng/dL (0.76-1.46)
[2021-05-07 06:29] LABS: FOLIC ACID (FOLATE) SERUM 4.1 ng/mL (>5.38)
[2021-05-07] MEDS ORDERED: HEPARIN 1000 UNITS/ML 10ML ONE (07:31)
[2021-05-07] MEDS: MORPHINE SULFATE 2 MG/ML CPJ (NOT FOR IM USE) IV PRN ×4 (07:53→22:27)
[2021-05-07] MEDS: BLOOD SUGAR DIAGNOSTIC STRIP TEST SCH ×4 (07:59→20:07)
[2021-05-07] MEDS: INSULIN LISPRO 100 UNITS/ML SUBCUT SCH ×4 (07:59→20:14)
[2021-05-07] MEDS: PANTOPRAZOLE SODIUM 40 MG/VIAL IV SCH ×2 (08:18→20:10)
[2021-05-07] MEDS: DEXT 5%/0.45% NACL 1000ML 1,000 ML IV SCH (08:18)
[2021-05-07] MEDS: FOLIC ACID 1MG TABLET PO SCH (10:30)
[2021-05-07] MEDS ORDERED: VANCOMYCIN 1 G PREMIX 200 ML IV NR (11:00)
[2021-05-07 12:39] LABS: HEMATOCRIT. 22.4 % (42.0-52.0); MEAN CORPUSCULAR VOLUME 84.4 fL (80.0-94.0); MEAN PLATELET VOLUME 9.4 fl (7.4-10.4); PLATELET 177 x1000/uL (130-400); RED BLOOD CELL COUNT 2.66 mill/uL (4.7-6.1); RED CELL DISTRIBUTION WIDTH 15.8 % (11.6-14.6)
[2021-05-07 13:24] LABS: PLATELET ESTIMATE NORMAL
[2021-05-07 14:44] LABS: HEPATITIS B SURFACE ANTIGEN NEGATIVE
[2021-05-07 15:14] LABS: HEPATITIS A AB IGM NEGATIVE (NEGATIVE)
[2021-05-07 17:58] LABS: HEMOGLOBIN 7.4 g/dL (14.0-18.0)
[2021-05-07] MEDS: EPOETIN ALFA-EPBX 10,000 UNIT/ML VIAL SUBCUT SCH (20:10)
[2021-05-07] MEDS: HYDRALAZINE 20MG/ML VIAL IV PRN (23:32)
[2021-05-08] VITALS (7 sets, daily range): BP systolic 118–165; BP diastolic 43–82
[2021-05-08 00:46] LABS: HEMATOCRIT 26.1 % (42.0-52.0); HEMOGLOBIN 8.6 g/dL (14.0-18.0)
[2021-05-08] MEDS: DEXT 5%/0.45% NACL 1000ML 1,000 ML IV SCH (04:27)
[2021-05-08] MEDS: PIPERACILLIN/TAZOBACTAM 2.25G in DEXTROSE 5% WATER 50ML IV SCH ×3 (05:10→21:30)
[2021-05-08] MEDS: BLOOD SUGAR DIAGNOSTIC STRIP TEST SCH ×4 (06:25→21:09)
[2021-05-08 06:52] LABS: INR 1.1; PROTHROMBIN TIME 11.4 sec (9.6-11.0)
[2021-05-08 07:00] LABS: HEMOGLOBIN. 9.1 g/dL (14.0-18.0); MEAN CORPUSCULAR HEMOGLOBIN 29.7 pg (28.0-32.0); MEAN CORPUSCULAR VOLUME 85.3 fL (80.0-94.0); MEAN PLATELET VOLUME 9.5 fl (7.4-10.4); PLATELET 191 x1000/uL (130-400); RED BLOOD CELL COUNT 3.05 mill/uL (4.7-6.1); RED CELL DISTRIBUTION WIDTH 15.6 % (11.6-14.6)
[2021-05-08] MEDS: INSULIN LISPRO 100 UNITS/ML SUBCUT SCH ×4 (07:50→21:00)
[2021-05-08] MEDS ORDERED: MIDAZOLAM HCL 5 MG/5 ML VIAL ONE (11:11)
[2021-05-08] MEDS ORDERED: FENTANYL CITRATE/PF 50MCG/ML 2ML VIAL ONE (11:12)
[2021-05-08] MEDS ORDERED: MIDAZOLAM HCL 5 MG/5 ML VIAL IV PRN (11:22)
[2021-05-08] MEDS ORDERED: DIPHENHYDRAMINE 50MG/ML VIAL IV PRN (11:25)
[2021-05-08] MEDS ORDERED: DIPHENHYDRAMINE 50MG/ML VIAL ONE (11:33)
[2021-05-08 14:29] LABS: PLATELET ESTIMATE NORMAL
[2021-05-08] MEDS: FOLIC ACID 1MG TABLET PO SCH (15:13)
[2021-05-08] MEDS: SUCRALFATE 1 G/10 ML UDC PO SCH ×3 (15:17→21:09)
[2021-05-08 16:09] LABS: HEMATOCRIT 25.8 % (42.0-52.0); HEMOGLOBIN 8.9 g/dL (14.0-18.0)
[2021-05-08] MEDS ORDERED: VANCOMYCIN 750 MG PREMIX 150 ML IV NR (20:00)
[2021-05-08] MEDS: PANTOPRAZOLE SODIUM 40 MG/VIAL IV SCH (21:08)
[2021-05-08] MEDS: MORPHINE SULFATE 2 MG/ML CPJ (NOT FOR IM USE) IV PRN (21:30)
[2021-05-09] VITALS (11 sets, daily range): BP systolic 131–179; BP diastolic 41–87
[2021-05-09] MEDS: PIPERACILLIN/TAZOBACTAM 2.25G in DEXTROSE 5% WATER 50ML IV SCH ×3 (06:15→22:09)
[2021-05-09] MEDS: SUCRALFATE 1 G/10 ML UDC PO SCH ×4 (06:15→20:39)
[2021-05-09 06:37] LABS: CHLORIDE 106 mEq/L (98-107)
[2021-05-09] MEDS: BLOOD SUGAR DIAGNOSTIC STRIP TEST SCH ×4 (07:25→20:39)
[2021-05-09] MEDS: INSULIN LISPRO 100 UNITS/ML SUBCUT SCH ×4 (07:50→20:58)
[2021-05-09] MEDS: PANTOPRAZOLE SODIUM 40 MG/VIAL IV SCH ×2 (09:21→20:37)
[2021-05-09] MEDS: FOLIC ACID 1MG TABLET PO SCH (09:21)
[2021-05-09] MEDS: MORPHINE SULFATE 2 MG/ML CPJ (NOT FOR IM USE) IV PRN ×2 (13:35→20:38)
[2021-05-09 15:25] LABS: HEMATOCRIT. 22.6 % (42.0-52.0); HEMOGLOBIN. 7.9 g/dL (14.0-18.0); MEAN CORPUSCULAR VOLUME 86.1 fL (80.0-94.0); MEAN PLATELET VOLUME 9.5 fl (7.4-10.4); PLATELET 176 x1000/uL (130-400); RED BLOOD CELL COUNT 2.62 mill/uL (4.7-6.1); RED CELL DISTRIBUTION WIDTH 15.6 % (11.6-14.6)
[2021-05-09 15:32] LABS: CHLORIDE 104 mEq/L (98-107)
[2021-05-09 16:24] LABS: PLATELET ESTIMATE NORMAL
[2021-05-09] MEDS: HYDRALAZINE 20MG/ML VIAL IV PRN ×2 (17:34→20:37)
[2021-05-09] MEDS: DEXT 5%/0.45% NACL 1000ML 1,000 ML IV SCH ×2 (20:00)
[2021-05-09] MEDS: EPOETIN ALFA-EPBX 10,000 UNIT/ML VIAL SUBCUT SCH (20:41)
[2021-05-10 00:29] LABS: HEMATOCRIT 27.7 % (42.0-52.0); HEMOGLOBIN 9.5 g/dL (14.0-18.0)
[2021-05-10 04:00] VITALS: BP 196/53
[2021-05-10] MEDS: HYDRALAZINE 20MG/ML VIAL IV PRN (05:02)
[2021-05-10] MEDS: MORPHINE SULFATE 2 MG/ML CPJ (NOT FOR IM USE) IV PRN (05:02)
[2021-05-10] MEDS: PIPERACILLIN/TAZOBACTAM 2.25G in DEXTROSE 5% WATER 50ML IV SCH ×3 (05:02→22:00)
[2021-05-10 06:13] LABS: HEMATOCRIT. 27.6 % (42.0-52.0); HEMOGLOBIN. 9.4 g/dL (14.0-18.0); MEAN CORPUSCULAR VOLUME 87.7 fL (80.0-94.0); MEAN PLATELET VOLUME 9.6 fl (7.4-10.4); PLATELET 155 x1000/uL (130-400); RED BLOOD CELL COUNT 3.15 mill/uL (4.7-6.1); RED CELL DISTRIBUTION WIDTH 15.6 % (11.6-14.6)
[2021-05-10] MEDS: SUCRALFATE 1 G/10 ML UDC PO SCH ×4 (06:20→22:15)
[2021-05-10] MEDS: INSULIN LISPRO 100 UNITS/ML SUBCUT SCH ×4 (07:20→21:00)
[2021-05-10] MEDS: BLOOD SUGAR DIAGNOSTIC STRIP TEST SCH ×4 (07:20→21:00)
[2021-05-10 08:18] VITALS: BP 158/74
[2021-05-10] MEDS: PANTOPRAZOLE SODIUM 40 MG/VIAL IV SCH ×2 (08:28→22:16)
[2021-05-10] MEDS: FOLIC ACID 1MG TABLET PO SCH (08:31)
[2021-05-10 12:08] VITALS: BP 162/84
[2021-05-10 13:05] LABS: HEMATOCRIT 31.7 % (42.0-52.0); HEMOGLOBIN 10.6 g/dL (14.0-18.0)
[2021-05-10 13:22] LABS: INR 1.1; PROTHROMBIN TIME 12.1 sec (9.6-11.0)
[2021-05-10] MEDS: DEXT 5%/0.45% NACL 1000ML 1,000 ML IV SCH (15:51)
[2021-05-10 20:00] VITALS: BP 131/69
[2021-05-10] MEDS ORDERED: VANCOMYCIN 750 MG PREMIX 150 ML IV NR (20:00)
[2021-05-10 23:11] LABS: PLATELET ESTIMATE NORMAL
[2021-05-11] VITALS: BP 145/72
[2021-05-11 04:00] VITALS: BP 136/81
[2021-05-11] MEDS: PIPERACILLIN/TAZOBACTAM 2.25G in DEXTROSE 5% WATER 50ML IV SCH ×3 (05:34→21:36)
[2021-05-11 06:21] LABS: HEMATOCRIT. 28.8 % (42.0-52.0); HEMOGLOBIN. 9.8 g/dL (14.0-18.0); MEAN CORPUSCULAR HEMOGLOBIN 29.6 pg (28.0-32.0); MEAN CORPUSCULAR VOLUME 87.2 fL (80.0-94.0); MEAN PLATELET VOLUME 9.6 fl (7.4-10.4); PLATELET 219 x1000/uL (130-400); RED CELL DISTRIBUTION WIDTH 15.7 % (11.6-14.6)
[2021-05-11] MEDS: MORPHINE SULFATE 2 MG/ML CPJ (NOT FOR IM USE) IV PRN ×2 (06:46→09:41)
[2021-05-11] MEDS: INSULIN LISPRO 100 UNITS/ML SUBCUT SCH ×4 (07:50→21:00)
[2021-05-11 08:05] VITALS: BP 152/88
[2021-05-11] MEDS: BLOOD SUGAR DIAGNOSTIC STRIP TEST SCH ×4 (08:07→21:36)
[2021-05-11] MEDS: FOLIC ACID 1MG TABLET PO SCH (08:45)
[2021-05-11] MEDS: SUCRALFATE 1 G/10 ML UDC PO SCH ×4 (08:45→21:35)
[2021-05-11] MEDS: PANTOPRAZOLE SODIUM 40 MG/VIAL IV SCH ×2 (08:45→21:35)
[2021-05-11] MEDS: BISACODYL 5MG TABLET PO SCH ×4 (11:30→23:30)
[2021-05-11 12:06] VITALS: BP 159/87
[2021-05-11] MEDS: SORBITOL 70% SOLN 30ML PO SCH ×4 (13:45→23:37)
[2021-05-11] MEDS: METOCLOPRAMIDE HCL 10MG/2ML VIAL IV SCH ×4 (13:46→23:30)
[2021-05-11] MEDS: DEXT 5%/0.45% NACL 1000ML 1,000 ML IV SCH (13:59)
[2021-05-11 14:32] LABS: PLATELET ESTIMATE NORMAL
[2021-05-11 16:27] VITALS: BP 139/74
[2021-05-11 20:30] VITALS: BP 170/41
[2021-05-12] VITALS: BP 177/49
[2021-05-12 04:00] VITALS: BP 157/68
[2021-05-12 06:32] LABS: BASOPHILS % 0.3 % (0.0-2.0); EOSINOPHILS % 1.2 % (0.0-5.0); HEMATOCRIT. 30.9 % (42.0-52.0); HEMOGLOBIN. 10.4 g/dL (14.0-18.0); LYMPHOCYTES % 7.9 % (20.0-50.0); MEAN CORPUSCULAR HEMOGLOBIN 29.4 pg (28.0-32.0); MEAN PLATELET VOLUME 9.6 fl (7.4-10.4); MONOCYTES % 12.1 % (2.0-8.0); NEUTROPHILS % 78.5 % (40.0-76.0); PLATELET 259 x1000/uL (130-400); RED BLOOD CELL COUNT 3.56 mill/uL (4.7-6.1); RED CELL DISTRIBUTION WIDTH 15.4 % (11.6-14.6)
[2021-05-12] MEDS: SUCRALFATE 1 G/10 ML UDC PO SCH ×4 (06:38→20:54)
[2021-05-12] MEDS: BLOOD SUGAR DIAGNOSTIC STRIP TEST SCH ×3 (06:38→20:38)
[2021-05-12 06:55] LABS: INR 1.2; PROTHROMBIN TIME 12.6 sec (9.6-11.0)
[2021-05-12] MEDS: INSULIN LISPRO 100 UNITS/ML SUBCUT SCH ×3 (07:50→20:38)
[2021-05-12 08:00] VITALS: BP 179/86
[2021-05-12] MEDS: FOLIC ACID 1MG TABLET PO SCH (09:00)
[2021-05-12] MEDS: PANTOPRAZOLE SODIUM 40 MG/VIAL IV SCH ×2 (09:52→20:54)
[2021-05-12] MEDS: HYDRALAZINE 20MG/ML VIAL IV PRN (09:52)
[2021-05-12] MEDS ORDERED: BACTERIOSTATIC SODIUM CHLORIDE 0.9% 30ML VIAL IJ ONE (11:00)
[2021-05-12 12:00] VITALS: BP 173/64
[2021-05-12 16:00] VITALS: BP 172/79
[2021-05-12] MEDS ORDERED: MIDAZOLAM HCL 5 MG/5 ML VIAL IV PRN (16:48)
[2021-05-12] MEDS ORDERED: DIPHENHYDRAMINE 50MG/ML VIAL IV PRN (16:49)
[2021-05-12] MEDS ORDERED: FENTANYL CITRATE/PF 50MCG/ML 2ML VIAL IV PRN (16:50)
[2021-05-12] MEDS ORDERED: MIDAZOLAM HCL 5 MG/5 ML VIAL ONE (16:53)
[2021-05-12] MEDS ORDERED: FENTANYL CITRATE/PF 50MCG/ML 2ML VIAL ONE (16:53)
[2021-05-12] MEDS ORDERED: DIPHENHYDRAMINE 50MG/ML VIAL ONE ×2 (16:58→17:22)
[2021-05-12 20:00] VITALS: BP 150/90
[2021-05-13] VITALS: BP 161/84
[2021-05-13] MEDS: HYDROCODONE/ACETAMINOPHEN 5/325MG TABLET PO PRN ×4 (00:07→22:16)
[2021-05-13 00:11] LABS: HEPATITIS B SURFACE ANTIGEN NEGATIVE
[2021-05-13] MEDS: HYDRALAZINE 20MG/ML VIAL IV PRN ×2 (00:14→22:24)
[2021-05-13 04:00] VITALS: BP 156/80
[2021-05-13] MEDS: BLOOD SUGAR DIAGNOSTIC STRIP TEST SCH ×4 (06:17→21:00)
[2021-05-13] MEDS: SUCRALFATE 1 G/10 ML UDC PO SCH ×4 (06:20→22:03)
[2021-05-13] MEDS: INSULIN LISPRO 100 UNITS/ML SUBCUT SCH ×4 (06:21→22:23)
[2021-05-13 08:00] VITALS: BP 176/77
[2021-05-13] MEDS: FOLIC ACID 1MG TABLET PO SCH (09:30)
[2021-05-13] MEDS: PANTOPRAZOLE SODIUM 40 MG/VIAL IV SCH ×2 (09:31→22:01)
[2021-05-13 09:48] LABS: HEMATOCRIT. 30.4 % (42.0-52.0); HEMOGLOBIN. 10.2 g/dL (14.0-18.0); MEAN CORPUSCULAR HEMOGLOBIN 29.3 pg (28.0-32.0); MEAN PLATELET VOLUME 8.9 fl (7.4-10.4); PLATELET 331 x1000/uL (130-400); RED CELL DISTRIBUTION WIDTH 15.4 % (11.6-14.6)
[2021-05-13 11:02] LABS: HEPATITIS A AB IGM NEGATIVE (NEGATIVE)
[2021-05-13 12:00] VITALS: BP 131/47
[2021-05-13 14:06] LABS: PLATELET ESTIMATE NORMAL
[2021-05-13] MEDS ORDERED: TRAM50TA94 MT (15:05)
[2021-05-13] MEDS ORDERED: SUCR1TAB30 MT (15:05)
[2021-05-13] MEDS ORDERED: OMEP40CA12 MT (15:05)
[2021-05-13 16:00] VITALS: BP 177/84
[2021-05-13 20:00] VITALS: BP 164/81
[2021-05-14] VITALS: BP 133/61
[2021-05-14 04:00] VITALS: BP 185/76
[2021-05-14 06:07] VITALS: BP 185/76
[2021-05-14] MEDS: HYDROCODONE/ACETAMINOPHEN 5/325MG TABLET PO PRN (06:07)
[2021-05-14] MEDS: SUCRALFATE 1 G/10 ML UDC PO SCH (06:14)
[2021-05-14] MEDS: HYDRALAZINE 20MG/ML VIAL IV PRN (06:21)
[2021-05-14] MEDS: BLOOD SUGAR DIAGNOSTIC STRIP TEST SCH ×2 (06:23→12:23)
[2021-05-14 07:15] LABS: HEMOGLOBIN 9.9 g/dL (14.0-18.0); MEAN CORPUSCULAR HEMOGLOBIN 29.4 pg (28.0-32.0); PLATELET 281 x1000/uL (130-400); RED BLOOD CELL COUNT 3.37 mill/uL (4.7-6.1); RED CELL DISTRIBUTION WIDTH 15.2 % (11.6-14.6)
[2021-05-14] MEDS: INSULIN LISPRO 100 UNITS/ML SUBCUT SCH ×2 (07:42→12:24)
[2021-05-14] MEDS: PANTOPRAZOLE SODIUM 40 MG/VIAL IV SCH (09:32)
[2021-05-14] MEDS: FOLIC ACID 1MG TABLET PO SCH (09:32)
[2021-05-14] MEDS ORDERED: COR12 MT (10:59)
[2021-05-14] MEDS ORDERED: DILTIAZEM HCL 30MG TABLET PO SCH (14:00)
== END 2021-05-14 16:50 | disposition home or self-care (01) | DRG 871 ==
LOC: ER 07:27 → EDBEDREQSVC 09:57 → EDBEDREQ 09:57 → ENRESERV 10:44 → CVICU 11:02 → SUPCPDRO 11:18 → 6WST 05-08 01:05
PROVIDERS: ADMIT Internal Medicine; ATTEND Internal Medicine
PROC: 02HV33Z Insertion of Infusion Device into Superior Vena Cava, Percutaneous Approach (ICD-10-PCS; 2021-05-06)
PROC: B548ZZA Ultrasonography of Superior Vena Cava, Guidance (ICD-10-PCS; 2021-05-06)
PROC: 30233M1 Transfusion of Nonautologous Plasma Cryoprecipitate into Peripheral Vein, Percutaneous Approach (ICD-10-PCS; 2021-05-06)
PROC: 30233N1 Transfusion of Nonautologous Red Blood Cells into Peripheral Vein, Percutaneous Approach (ICD-10-PCS; 2021-05-06)
PROC: 5A1D70Z Performance of Urinary Filtration, Intermittent, Less than 6 Hours Per Day (ICD-10-PCS; 2021-05-06)
PROC: 0DB78ZX Excision of Stomach, Pylorus, Via Natural or Artificial Opening Endoscopic, Diagnostic (ICD-10-PCS; principal; 2021-05-08)
PROC: 5A1D70Z Performance of Urinary Filtration, Intermittent, Less than 6 Hours Per Day (ICD-10-PCS; 2021-05-08)
PROC: 5A1D70Z Performance of Urinary Filtration, Intermittent, Less than 6 Hours Per Day (ICD-10-PCS; 2021-05-11)
PROC: 0DBE8ZX Excision of Large Intestine, Via Natural or Artificial Opening Endoscopic, Diagnostic (ICD-10-PCS; 2021-05-12)
PROC: 0DBL8ZZ Excision of Transverse Colon, Via Natural or Artificial Opening Endoscopic (ICD-10-PCS; 2021-05-12)
PROC: 5A1D70Z Performance of Urinary Filtration, Intermittent, Less than 6 Hours Per Day (ICD-10-PCS; 2021-05-13)
PROC: 5A1D70Z Performance of Urinary Filtration, Intermittent, Less than 6 Hours Per Day (ICD-10-PCS; 2021-05-14)
DX: A41.9 Sepsis, unspecified organism (principal); I50.23 Acute on chronic systolic (congestive) heart failure; N18.6 End stage renal disease; K25.4 Chronic or unspecified gastric ulcer with hemorrhage; K26.4 Chronic or unspecified duodenal ulcer with hemorrhage; G93.40 Encephalopathy, unspecified; I13.2 Hypertensive heart and chronic kidney disease with heart failure and with stage 5 chronic kidney disease, or end stage renal disease; E46 Unspecified protein-calorie malnutrition; E87.2 Acidosis; E11.22 Type 2 diabetes mellitus with diabetic chronic kidney disease; I27.20 Pulmonary hypertension, unspecified; E87.5 Hyperkalemia; Z20.822 Contact with and (suspected) exposure to COVID-19; R31.9 Hematuria, unspecified; E53.8 Deficiency of other specified B group vitamins; N40.0 Benign prostatic hyperplasia without lower urinary tract symptoms; R59.0 Localized enlarged lymph nodes; C61 Malignant neoplasm of prostate; K63.5 Polyp of colon; D50.0 Iron deficiency anemia secondary to blood loss (chronic); K29.30 Chronic superficial gastritis without bleeding; Z79.82 Long term (current) use of aspirin; Z79.899 Other long term (current) drug therapy; Z99.2 Dependence on renal dialysis; Z86.73 Personal history of transient ischemic attack (TIA), and cerebral infarction without residual deficits; Z68.26 Body mass index [BMI] 26.0-26.9, adult
CPT/HCPCS: 36415; 36600; 71045; 74176; 76700; 76872; 76937; 78278; 80048; 80053; 80061; 80074; 80202; 82375; 82378; 82550; 82553; 82607; 82728; 82746; 82805; 82962; 83036; 83540; 83550; 83605; 83615; 83880; 84132; 84145; 84153; 84439; 84443; 84484; 85014; 85018; 85025; 85027; 85044; 86301; 86705; 86709; 86803; 86850; 86900; 86920; 86927; 87340; 87426; 88305; 88312; 88313; 93005; 93306; 93970; 99291; A6261; A9560; C1725; C9113; J0360; J0610; J0885; J1200; J1644; J1815; J2060; J2250; J2270; J2405; J2543; J2765; J3010; J3370; J3490; J7030; J7060; J7070; P9016; P9017; P9021; G0103

== ENCOUNTER 2021-05-16 13:40 | Inpatient (IN) | payer MEDICARE ==
[~2021-05-16] VITALS: Ht 185.4 cm; Wt 82.1 kg
[~2021-05-16 13:40] MED LIST changes: -ASPI-1497 PO; -CARV25TA47 PO; +COR12 MT; +DEXTROSE 50% WATER 50ML SYRINGE IV ONE; -LOSA50TA41 PO; +OMEP40CA12 MT; +SODIUM CHLORIDE 0.9% 10ML VIAL ONE; +SUCR1TAB30 MT; +TRAM50TA94 MT
[2021-05-16 14:07] LABS: BG BASE EXCESS -3.8 mmol/L (-2.0-2.0); BG CARBOXYHEMOGLOBIN 0.1 % (0.5-1.5); BG DEOXYHEMOGLOBIN 0.8 % (0.0-5.0); BG FRACTION INSPIRED OXYGEN 100; BG HCO3 ACT 20.5 mmol/L (22.0-26.0); BG METHEMOGLOBIN 0.4 % (0.0-1.5); BG OXYGEN SATURATION 99.2 % (92.0-98.5); BG OXYHEMOGLOBIN 98.7 % (94.0-97.0); BG PCO2 33.6 mmHg (35.0-45.0); BG PH 7.404 (7.350-7.450); BG PO2 437.6 mmHg (75.0-100.0); BG SAMPLE SITE RIGHT RADIAL; BG TOTAL HEMOGLOBIN 7.4 g/dL (12.0-18.0); BG VENT MODE MASK - NRB
[2021-05-16] MEDS ORDERED: INSULIN REGULAR 0.5UNIT/ML SYR(NEO) IV ONE (14:30)
[2021-05-16] MEDS ORDERED: INSULIN REGULAR (HUMULIN R) 300UNITS/3ML VIAL IV NR (14:30)
[2021-05-16] MEDS ORDERED: SODIUM CHLORIDE 0.9% 1,000 ML IV ONE (14:45)
[2021-05-16] MEDS ORDERED: DEXTROSE 50% WATER 50ML SYRINGE IV NR (15:00)
[2021-05-16 15:20] LABS: MEAN CORPUSCULAR HEMOGLOBIN 29.1 pg (28.0-32.0); MEAN CORPUSCULAR VOLUME 86.3 fL (80.0-94.0); MEAN PLATELET VOLUME 9.1 fl (7.4-10.4); PLATELET 262 x1000/uL (130-400); RED BLOOD CELL COUNT 2.09 mill/uL (4.7-6.1); RED CELL DISTRIBUTION WIDTH 15.4 % (11.6-14.6)
[2021-05-16] MEDS ORDERED: FENTANYL CITRATE/PF 50MCG/ML 2ML VIAL IV ONE (15:30)
[2021-05-16 15:41] LABS: HEMATOCRIT. 18.1 % (42.0-52.0); HEMOGLOBIN. 6.1 g/dL (14.0-18.0)
[2021-05-16 15:58] LABS: INR 1.3; PROTHROMBIN TIME 13.5 sec (9.6-11.0)
[2021-05-16] MEDS ORDERED: FENTANYL CITRATE/PF 2,500 MCG in SODIUM CHLORIDE 0.9% 200 ML IV PRN ×2 (16:45→17:00)
[2021-05-16 17:00] LABS: PLATELET ESTIMATE NORMAL
[2021-05-16 17:17] LABS: CHLORIDE 112 mEq/L (98-107)
[2021-05-16] MEDS ORDERED: HYDROCODONE/ACETAMINOPHEN 5/325MG TABLET PO NR (19:45)
[2021-05-16 19:59] LABS: HEMATOCRIT. 21.9 % (42.0-52.0); HEMOGLOBIN. 7.6 g/dL (14.0-18.0); MEAN CORPUSCULAR HEMOGLOBIN 30.6 pg (28.0-32.0); MEAN CORPUSCULAR VOLUME 87.9 fL (80.0-94.0); MEAN PLATELET VOLUME 9.5 fl (7.4-10.4); PLATELET 192 x1000/uL (130-400); RED BLOOD CELL COUNT 2.49 mill/uL (4.7-6.1); RED CELL DISTRIBUTION WIDTH 16.1 % (11.6-14.6)
[2021-05-16] MEDS ORDERED: HYDRALAZINE 20MG/ML VIAL IV PRN (20:00)
[2021-05-16] MEDS ORDERED: PANTOPRAZOLE 80 MG in SODIUM CHLORIDE 0.9% 100 ML IV SCH (20:00)
[2021-05-16] MEDS ORDERED: PIPERACILLIN/TAZOBACTAM 2.25G in DEXTROSE 5% WATER 50ML IV SCH (20:00)
[2021-05-16] MEDS ORDERED: VANCOMYCIN 1 G PREMIX 200 ML IV SCH (20:00)
[2021-05-16] MEDS ORDERED: ACETAMINOPHEN 325MG TABLET PO PRN (20:00)
[2021-05-16] MEDS ORDERED: ONDANSETRON HCL 4MG/2ML INJ IV PRN (20:00)
[2021-05-16] MEDS ORDERED: PIPERACILLIN/TAZ 3.375G PREMIX 50 ML IV SCH (20:00)
[2021-05-16] MEDS ORDERED: IPRATROPIUM/ALBUTEROL 0.5-3(2.5)MG/3ML NEB NEB PRN (20:00)
[2021-05-16 20:04] LABS: CHLORIDE 112 mEq/L (98-107)
[2021-05-16] MEDS: PANTOPRAZOLE 80 MG in SODIUM CHLORIDE 0.9% 100 ML IV SCH (20:24)
[2021-05-16] MEDS: DEXT 5%/0.9% NACL 1,000 ML IV SCH (20:24)
[2021-05-16 20:31] LABS: BG BASE EXCESS -1.9 mmol/L (-2.0-2.0); BG CARBOXYHEMOGLOBIN 0.1 % (0.5-1.5); BG DEOXYHEMOGLOBIN 4.8 % (0.0-5.0); BG FRACTION INSPIRED OXYGEN 21; BG HCO3 ACT 22.6 mmol/L (22.0-26.0); BG METHEMOGLOBIN 0.5 % (0.0-1.5); BG OXYGEN SATURATION 95.2 % (92.0-98.5); BG OXYHEMOGLOBIN 94.6 % (94.0-97.0); BG PCO2 37.3 mmHg (35.0-45.0); BG PH 7.401 (7.350-7.450); BG PO2 82.4 mmHg (75.0-100.0); BG SAMPLE SITE RIGHT BRACHIAL; BG TOTAL HEMOGLOBIN 7.9 g/dL (12.0-18.0); BG VENT MODE ROOM AIR
[2021-05-16 21:00] VITALS: BP 136/72
[2021-05-16] MEDS ORDERED: VANCOMYCIN 1500MG in DEXTROSE 5% WATER 250ML IV NR (21:00)
[2021-05-16 21:11] LABS: HEPATITIS B SURFACE ANTIGEN NEGATIVE
[2021-05-16 21:30] VITALS: BP 137/73
[2021-05-16 21:40] LABS: HEPATITIS A AB IGM NEGATIVE (NEGATIVE)
[2021-05-16 22:00] VITALS: BP 150/75
[2021-05-16 22:29] LABS: PLATELET ESTIMATE NORMAL
[2021-05-17] VITALS (18 sets, daily range): BP systolic 142–157; BP diastolic 58–91
[2021-05-17] MEDS: MORPHINE SULFATE 2 MG/ML CPJ (NOT FOR IM USE) IV PRN ×3 (01:09→23:45)
[2021-05-17 02:43] LABS: HEMATOCRIT 29.7 % (42.0-52.0); HEMOGLOBIN 9.7 g/dL (14.0-18.0)
[2021-05-17] MEDS ORDERED: VANCOMYCIN 1500MG in DEXTROSE 5% WATER 250ML IV NR (06:30)
[2021-05-17] MEDS: PANTOPRAZOLE 80 MG in SODIUM CHLORIDE 0.9% 100 ML IV SCH ×2 (08:47→15:11)
[2021-05-17] MEDS: DEXT 5%/0.9% NACL 1,000 ML IV SCH (08:51)
[2021-05-17] MEDS: PIPERACILLIN/TAZOBACTAM 2.25G in DEXTROSE 5% WATER 50ML IV SCH ×3 (09:11→23:44)
[2021-05-17 09:55] LABS: HEMATOCRIT 26.1 % (42.0-52.0); HEMOGLOBIN 9.1 g/dL (14.0-18.0)
[2021-05-17] MEDS: SUCRALFATE 1 G/10 ML UDC PO SCH ×2 (18:29→23:44)
[2021-05-17 20:14] LABS: HEMATOCRIT 29.9 % (42.0-52.0)
[2021-05-17] MEDS ORDERED: EPOETIN ALFA-EPBX 10,000 UNIT/ML VIAL SUBCUT SCH (21:00)
[2021-05-17] MEDS: PANTOPRAZOLE SODIUM 40 MG/VIAL IV SCH (23:45)
[2021-05-18] VITALS (27 sets, daily range): BP systolic 132–170; BP diastolic 67–112
[2021-05-18 00:55] LABS: HEMATOCRIT 24.7 % (42.0-52.0); HEMOGLOBIN 8.5 g/dL (14.0-18.0)
[2021-05-18] MEDS: PIPERACILLIN/TAZOBACTAM 2.25G in DEXTROSE 5% WATER 50ML IV SCH ×3 (05:13→21:39)
[2021-05-18 07:11] LABS: HEMOGLOBIN. 8.6 g/dL (14.0-18.0); MEAN CORPUSCULAR HEMOGLOBIN 29.8 pg (28.0-32.0); MEAN CORPUSCULAR VOLUME 86.7 fL (80.0-94.0); MEAN PLATELET VOLUME 9.2 fl (7.4-10.4); PLATELET 234 x1000/uL (130-400); RED BLOOD CELL COUNT 2.89 mill/uL (4.7-6.1); RED CELL DISTRIBUTION WIDTH 16.5 % (11.6-14.6)
[2021-05-18] MEDS: SUCRALFATE 1 G/10 ML UDC PO SCH ×4 (08:48→21:13)
[2021-05-18] MEDS: PANTOPRAZOLE SODIUM 40 MG/VIAL IV SCH ×2 (08:48→21:13)
[2021-05-18] MEDS: MORPHINE SULFATE 2 MG/ML CPJ (NOT FOR IM USE) IV PRN ×3 (08:49→19:45)
[2021-05-18 12:44] LABS: PLATELET ESTIMATE NORMAL
[2021-05-18] MEDS: DEXT 5%/0.9% NACL 1,000 ML IV SCH (21:42)
== END 2021-05-19 01:13 | disposition home or self-care (01) | DRG 871 ==
LOC: ER 13:40 → 5EST 17:05 → ENRESERV 17:45 → CANRESERV 17:45 → EDBEDREQSVC 19:20 → ENRESERV 19:48 → EDBEDREQTM 20:06
PROVIDERS: ADMIT Internal Medicine; ATTEND Internal Medicine
PROC: 02H633Z Insertion of Infusion Device into Right Atrium, Percutaneous Approach (ICD-10-PCS; principal; 2021-05-16)
PROC: B548ZZA Ultrasonography of Superior Vena Cava, Guidance (ICD-10-PCS; 2021-05-16)
PROC: 30233N1 Transfusion of Nonautologous Red Blood Cells into Peripheral Vein, Percutaneous Approach (ICD-10-PCS; 2021-05-16)
PROC: 5A1D70Z Performance of Urinary Filtration, Intermittent, Less than 6 Hours Per Day (ICD-10-PCS; 2021-05-17)
PROC: 5A1D70Z Performance of Urinary Filtration, Intermittent, Less than 6 Hours Per Day (ICD-10-PCS; 2021-05-19)
DX: A41.9 Sepsis, unspecified organism (principal); G92 Toxic encephalopathy; I50.43 Acute on chronic combined systolic (congestive) and diastolic (congestive) heart failure; N18.6 End stage renal disease; R57.8 Other shock; E43 Unspecified severe protein-calorie malnutrition; K26.4 Chronic or unspecified duodenal ulcer with hemorrhage; R57.1 Hypovolemic shock; D62 Acute posthemorrhagic anemia; I13.2 Hypertensive heart and chronic kidney disease with heart failure and with stage 5 chronic kidney disease, or end stage renal disease; I42.9 Cardiomyopathy, unspecified; E11.22 Type 2 diabetes mellitus with diabetic chronic kidney disease; E53.8 Deficiency of other specified B group vitamins; E87.5 Hyperkalemia; F17.200 Nicotine dependence, unspecified, uncomplicated; I27.20 Pulmonary hypertension, unspecified; K76.0 Fatty (change of) liver, not elsewhere classified; Z20.822 Contact with and (suspected) exposure to COVID-19; N40.0 Benign prostatic hyperplasia without lower urinary tract symptoms; R00.1 Bradycardia, unspecified; G90.8 Other disorders of autonomic nervous system; F10.10 Alcohol abuse, uncomplicated; Y90.9 Presence of alcohol in blood, level not specified; Z82.49 Family history of ischemic heart disease and other diseases of the circulatory system; Z85.46 Personal history of malignant neoplasm of prostate; Z86.73 Personal history of transient ischemic attack (TIA), and cerebral infarction without residual deficits; Z87.19 Personal history of other diseases of the digestive system; Z99.2 Dependence on renal dialysis; Z79.82 Long term (current) use of aspirin; Z79.899 Other long term (current) drug therapy; Z68.23 Body mass index [BMI] 23.0-23.9, adult
CPT/HCPCS: 36415; 36600; 71045; 80048; 80053; 80202; 82375; 82805; 82962; 85014; 85018; 85025; 85044; 86705; 86709; 86803; 86850; 86900; 86920; 87340; 87426; 93005; 93970; 99291; C9113; J0360; J0885; J1815; J2270; J2543; J3010; J3370; J7030; J7042; J7050; J7060; P9016

== ENCOUNTER 2021-07-05 22:25 | Emergency (ER) | payer MEDICARE ==
[~2021-07-05] VITALS: Ht 182.9 cm; Wt 78.0 kg
[~2021-07-05 22:25] MED LIST changes: -DEXTROSE 50% WATER 50ML SYRINGE IV ONE; -SODIUM CHLORIDE 0.9% 10ML VIAL ONE
[2021-07-05 23:26] VITALS: BP 163/80
[2021-07-06] MEDS ORDERED: LEVOFLOXACIN 250MG TABLET PO ONE (00:45)
[2021-07-06] MEDS ORDERED: CLINDAMYCIN HCL 150MG CAPSULE PO SCH (00:45)
[2021-07-06] MEDS ORDERED: CIPR500T5 MT (00:46)
[2021-07-06] MEDS ORDERED: CLIN300C12 MT (00:46)
[2021-07-06] MEDS ORDERED: CLOT24CR TP (00:47)
== END 2021-07-06 02:18 | disposition home or self-care (01) ==
LOC: ER 22:44
DX: L97.818 Non-pressure chronic ulcer of other part of right lower leg with other specified severity (principal); I13.2 Hypertensive heart and chronic kidney disease with heart failure and with stage 5 chronic kidney disease, or end stage renal disease; E11.22 Type 2 diabetes mellitus with diabetic chronic kidney disease; N18.6 End stage renal disease; Z99.2 Dependence on renal dialysis; Z79.899 Other long term (current) drug therapy
CPT/HCPCS: 99283

== ENCOUNTER 2021-07-08 13:01 | Inpatient (IN) | payer MEDICARE ==
[~2021-07-08] VITALS: Ht 182.9 cm; Wt 73.9 kg
[~2021-07-08 13:01] MED LIST changes: +CIPR500T5 MT; +CLIN300C12 MT; +CLOT24CR TP
[2021-07-08] MEDS ORDERED: SODIUM CHLORIDE 0.9% 1,000 ML IV ONE (14:15)
[2021-07-08] MEDS ORDERED: DEXTROSE 50% WATER 50ML SYRINGE IV ONE ×2 (14:41→16:00)
[2021-07-08 15:40] LABS: HEMATOCRIT. 22.8 % (42.0-52.0); HEMOGLOBIN. 7.8 g/dL (14.0-18.0); MEAN CORPUSCULAR HEMOGLOBIN 29.3 pg (28.0-32.0); MEAN CORPUSCULAR VOLUME 85.2 fL (80.0-94.0); MEAN PLATELET VOLUME 9.8 fl (7.4-10.4); PLATELET 295 x1000/uL (130-400); RED BLOOD CELL COUNT 2.67 mill/uL (4.7-6.1); RED CELL DISTRIBUTION WIDTH 15.7 % (11.6-14.6)
[2021-07-08 15:43] LABS: CHLORIDE 108 mEq/L (98-107)
[2021-07-08 15:46] LABS: INR 1.3; PROTHROMBIN TIME 13.3 sec (9.6-11.0)
[2021-07-08] MEDS ORDERED: DEXTROSE 10% WATER 500 ML IV ONE (16:00)
[2021-07-08 16:43] LABS: PLATELET ESTIMATE NORMAL
[2021-07-09] VITALS (13 sets, daily range): BP systolic 118–168; BP diastolic 15–91
[2021-07-09] MEDS: PANTOPRAZOLE SODIUM 40 MG/VIAL IV SCH ×3 (02:19→22:40)
[2021-07-09] MEDS: INSULIN LISPRO 100 UNITS/ML SUBCUT SCH ×3 (05:24→18:00)
[2021-07-09] MEDS: BLOOD SUGAR DIAGNOSTIC STRIP TEST SCH ×3 (05:24→18:44)
[2021-07-09 07:44] LABS: HEMATOCRIT. 25.8 % (42.0-52.0); HEMOGLOBIN. 8.5 g/dL (14.0-18.0); MEAN CORPUSCULAR HEMOGLOBIN 28.7 pg (28.0-32.0); MEAN CORPUSCULAR VOLUME 87.2 fL (80.0-94.0); MEAN PLATELET VOLUME 9.8 fl (7.4-10.4); PLATELET 213 x1000/uL (130-400); RED BLOOD CELL COUNT 2.95 mill/uL (4.7-6.1); RED CELL DISTRIBUTION WIDTH 15.2 % (11.6-14.6)
[2021-07-09] MEDS: DEXT 5%/0.45% NACL 1000ML 1,000 ML IV SCH ×2 (10:10→22:40)
[2021-07-09 14:09] LABS: TOTAL IRON BINDING CAPACITY 134 ug/dL (250-450)
[2021-07-09] MEDS ORDERED: LORAZEPAM 2MG/ML CPJ IV PRN (15:00)
[2021-07-09] MEDS ORDERED: LACTULOSE 20G/30ML UDC PO PRN (15:00)
[2021-07-09] MEDS ORDERED: IPRATROPIUM/ALBUTEROL 0.5-3(2.5)MG/3ML NEB HHN PRN (15:00)
[2021-07-09] MEDS ORDERED: ACETAMINOPHEN 650MG SUPP PR PRN (15:00)
[2021-07-09] MEDS ORDERED: PIPERACILLIN/TAZOBACTAM 2.25 G in DEXTROSE 5% WATER 50 ML IV SCH (15:15)
[2021-07-09 15:54] LABS: HEMATOCRIT. 23.7 % (42.0-52.0); HEMOGLOBIN. 7.9 g/dL (14.0-18.0); MEAN CORPUSCULAR HEMOGLOBIN 28.6 pg (28.0-32.0); MEAN CORPUSCULAR VOLUME 85.5 fL (80.0-94.0); PLATELET 222 x1000/uL (130-400); RED BLOOD CELL COUNT 2.78 mill/uL (4.7-6.1); RED CELL DISTRIBUTION WIDTH 15.2 % (11.6-14.6)
[2021-07-09] MEDS: PIPERACILLIN/TAZOBACTAM 2.25G in DEXTROSE 5% WATER 50ML IV SCH (16:00)
[2021-07-09 16:34] LABS: PLATELET ESTIMATE NORMAL
[2021-07-09 17:42] LABS: PLATELET ESTIMATE NORMAL
[2021-07-09] MEDS: MORPHINE SULFATE 2 MG/ML CPJ (NOT FOR IM USE) IV PRN (22:39)
[2021-07-09] MEDS ORDERED: NALOXONE HCL 0.4MG/ML VIAL IV PRN (23:45)
[2021-07-10] MEDS: PIPERACILLIN/TAZOBACTAM 2.25G in DEXTROSE 5% WATER 50ML IV SCH ×4 (02:11→22:16)
[2021-07-10 02:20] LABS: HEMATOCRIT 25.2 % (42.0-52.0); HEMOGLOBIN 8.6 g/dL (14.0-18.0)
[2021-07-10 04:00] VITALS: BP 142/68
[2021-07-10] MEDS: INSULIN LISPRO 100 UNITS/ML SUBCUT SCH ×5 (06:00→23:55)
[2021-07-10] MEDS: BLOOD SUGAR DIAGNOSTIC STRIP TEST SCH ×5 (06:10→23:55)
[2021-07-10 08:39] VITALS: BP 118/86
[2021-07-10] MEDS: PANTOPRAZOLE SODIUM 40 MG/VIAL IV SCH ×2 (09:54→20:28)
[2021-07-10] MEDS: MORPHINE SULFATE 2 MG/ML CPJ (NOT FOR IM USE) IV PRN ×2 (10:03→16:34)
[2021-07-10 11:31] LABS: HEMATOCRIT. 24.4 % (42.0-52.0); HEMOGLOBIN. 8.4 g/dL (14.0-18.0); MEAN CORPUSCULAR HEMOGLOBIN 29.6 pg (28.0-32.0); MEAN CORPUSCULAR VOLUME 85.9 fL (80.0-94.0); MEAN PLATELET VOLUME 9.5 fl (7.4-10.4); PLATELET 211 x1000/uL (130-400); RED BLOOD CELL COUNT 2.84 mill/uL (4.7-6.1); RED CELL DISTRIBUTION WIDTH 15.4 % (11.6-14.6)
[2021-07-10] MEDS: SUCRALFATE 1 G/10 ML UDC PO SCH ×3 (12:10→22:23)
[2021-07-10 12:21] LABS: HEPATITIS B SURFACE ANTIGEN NEGATIVE
[2021-07-10 12:29] VITALS: BP_SYST 110; BP_SYST 120; BP_DIAS 35; BP_DIAS 41
[2021-07-10 13:42] LABS: PLATELET ESTIMATE NORMAL
[2021-07-10] MEDS ORDERED: IOHEXOL-350 100 ML BOTTLE ONE (14:19)
[2021-07-10 16:29] VITALS: BP 147/42
[2021-07-10] MEDS: DEXT 5%/0.45% NACL 1000ML 1,000 ML IV SCH (18:13)
[2021-07-10 19:57] LABS: HEMATOCRIT 22.2 % (42.0-52.0); HEMOGLOBIN 7.6 g/dL (14.0-18.0)
[2021-07-10 20:00] VITALS: BP 152/71
[2021-07-10] MEDS: EPOETIN ALFA-EPBX 10,000 UNIT/ML VIAL SUBCUT SCH (22:24)
[2021-07-11] VITALS (7 sets, daily range): BP systolic 134–167; BP diastolic 51–99
[2021-07-11] MEDS: INSULIN LISPRO 100 UNITS/ML SUBCUT SCH ×4 (05:13→23:46)
[2021-07-11] MEDS: BLOOD SUGAR DIAGNOSTIC STRIP TEST SCH ×4 (05:13→23:46)
[2021-07-11] MEDS: PIPERACILLIN/TAZOBACTAM 2.25G in DEXTROSE 5% WATER 50ML IV SCH ×3 (05:44→21:13)
[2021-07-11 06:44] LABS: HEMATOCRIT. 29.1 % (42.0-52.0); HEMOGLOBIN. 9.9 g/dL (14.0-18.0); MEAN CORPUSCULAR HEMOGLOBIN 28.8 pg (28.0-32.0); MEAN CORPUSCULAR VOLUME 84.1 fL (80.0-94.0); MEAN PLATELET VOLUME 9.5 fl (7.4-10.4); PLATELET 241 x1000/uL (130-400); RED BLOOD CELL COUNT 3.45 mill/uL (4.7-6.1); RED CELL DISTRIBUTION WIDTH 15.3 % (11.6-14.6)
[2021-07-11] MEDS: SUCRALFATE 1 G/10 ML UDC PO SCH ×4 (07:30→20:41)
[2021-07-11 07:51] LABS: INR 1.2; PROTHROMBIN TIME 12.3 sec (9.6-11.0)
[2021-07-11] MEDS: PANTOPRAZOLE SODIUM 40 MG/VIAL IV SCH ×2 (08:53→20:41)
[2021-07-11 09:24] LABS: PLATELET ESTIMATE NORMAL
[2021-07-11] MEDS ORDERED: POTASSIUM CHLORIDE INJ 40 MEQ in DEXT 5% WATER 250 ML IV NR (11:00)
[2021-07-11] MEDS: DEXT 5%/0.45% NACL 1000ML 1,000 ML IV SCH (13:36)
[2021-07-11] MEDS ORDERED: MIDAZOLAM HCL 5 MG/5 ML VIAL IV PRN (15:53)
[2021-07-11] MEDS ORDERED: FENTANYL CITRATE/PF 50MCG/ML 2ML VIAL IV PRN (15:54)
[2021-07-11] MEDS ORDERED: MIDAZOLAM HCL 5 MG/5 ML VIAL ONE (15:55)
[2021-07-11] MEDS ORDERED: FENTANYL CITRATE/PF 50MCG/ML 2ML VIAL ONE (15:56)
[2021-07-11] MEDS: DIPHENHYDRAMINE 50MG/ML VIAL IV PRN (18:01)
[2021-07-11] MEDS: MORPHINE SULFATE 2 MG/ML CPJ (NOT FOR IM USE) IV PRN (21:14)
[2021-07-11 22:45] LABS: HEMATOCRIT 28.3 % (42.0-52.0); HEMOGLOBIN 10.1 g/dL (14.0-18.0)
[2021-07-12] VITALS (7 sets, daily range): BP systolic 138–163; BP diastolic 72–93
[2021-07-12] MEDS: INSULIN LISPRO 100 UNITS/ML SUBCUT SCH ×3 (06:00→17:49)
[2021-07-12] MEDS: BLOOD SUGAR DIAGNOSTIC STRIP TEST SCH ×3 (06:00→17:32)
[2021-07-12] MEDS: PIPERACILLIN/TAZOBACTAM 2.25G in DEXTROSE 5% WATER 50ML IV SCH ×3 (06:02→21:07)
[2021-07-12] MEDS: SUCRALFATE 1 G/10 ML UDC PO SCH ×4 (07:19→21:07)
[2021-07-12 07:42] LABS: HEMATOCRIT 29.5 % (42.0-52.0); HEMOGLOBIN 9.8 g/dL (14.0-18.0); MEAN CORPUSCULAR HEMOGLOBIN 28.8 pg (28.0-32.0); MEAN CORPUSCULAR VOLUME 86.7 fL (80.0-94.0); PLATELET 208 x1000/uL (130-400); RED CELL DISTRIBUTION WIDTH 15.8 % (11.6-14.6)
[2021-07-12 08:32] LABS: HEPATITIS B SURFACE ANTIGEN NEGATIVE
[2021-07-12] MEDS: PANTOPRAZOLE SODIUM 40 MG/VIAL IV SCH ×2 (09:28→21:07)
[2021-07-12] MEDS: DEXT 5%/0.45% NACL 1000ML 1,000 ML IV SCH ×2 (09:30→10:52)
[2021-07-12 11:42] LABS: HEMATOCRIT 28.7 % (42.0-52.0); HEMOGLOBIN 9.6 g/dL (14.0-18.0)
[2021-07-12] MEDS: MORPHINE SULFATE 2 MG/ML CPJ (NOT FOR IM USE) IV PRN (12:08)
[2021-07-12 19:25] LABS: HEMATOCRIT 27.8 % (42.0-52.0); HEMOGLOBIN 9.4 g/dL (14.0-18.0)
[2021-07-12] MEDS: EPOETIN ALFA-EPBX 10,000 UNIT/ML VIAL SUBCUT SCH (21:06)
[2021-07-13] VITALS (7 sets, daily range): BP systolic 157–168; BP diastolic 57–92
[2021-07-13] MEDS: MORPHINE SULFATE 2 MG/ML CPJ (NOT FOR IM USE) IV PRN ×2 (02:34→17:11)
[2021-07-13] MEDS: PIPERACILLIN/TAZOBACTAM 2.25G in DEXTROSE 5% WATER 50ML IV SCH ×3 (05:01→21:20)
[2021-07-13] MEDS: BLOOD SUGAR DIAGNOSTIC STRIP TEST SCH ×5 (05:28→23:36)
[2021-07-13] MEDS: INSULIN LISPRO 100 UNITS/ML SUBCUT SCH ×5 (05:28→23:36)
[2021-07-13 06:17] LABS: HEMATOCRIT 28.6 % (42.0-52.0); HEMOGLOBIN 9.7 g/dL (14.0-18.0); PLATELET 210 x1000/uL (130-400); RED BLOOD CELL COUNT 3.33 mill/uL (4.7-6.1); RED CELL DISTRIBUTION WIDTH 15.5 % (11.6-14.6)
[2021-07-13] MEDS: PANTOPRAZOLE SODIUM 40 MG/VIAL IV SCH ×2 (08:19→21:20)
[2021-07-13] MEDS: SUCRALFATE 1 G/10 ML UDC PO SCH ×4 (08:19→21:20)
[2021-07-13] MEDS: ACETAMINOPHEN 325MG TABLET PO PRN (13:50)
[2021-07-14] VITALS (7 sets, daily range): BP systolic 145–165; BP diastolic 83–98
[2021-07-14] MEDS: PIPERACILLIN/TAZOBACTAM 2.25G in DEXTROSE 5% WATER 50ML IV SCH ×3 (05:03→21:03)
[2021-07-14] MEDS: BLOOD SUGAR DIAGNOSTIC STRIP TEST SCH ×3 (05:45→18:09)
[2021-07-14] MEDS: INSULIN LISPRO 100 UNITS/ML SUBCUT SCH ×3 (05:46→18:00)
[2021-07-14] MEDS: SUCRALFATE 1 G/10 ML UDC PO SCH ×4 (05:46→21:04)
[2021-07-14 06:42] LABS: HEMATOCRIT 27.8 % (42.0-52.0); HEMOGLOBIN 9.4 g/dL (14.0-18.0); MEAN CORPUSCULAR HEMOGLOBIN 29.2 pg (28.0-32.0); MEAN CORPUSCULAR VOLUME 86.1 fL (80.0-94.0); PLATELET 200 x1000/uL (130-400); RED BLOOD CELL COUNT 3.23 mill/uL (4.7-6.1); RED CELL DISTRIBUTION WIDTH 15.7 % (11.6-14.6)
[2021-07-14] MEDS: MORPHINE SULFATE 2 MG/ML CPJ (NOT FOR IM USE) IV PRN (08:30)
[2021-07-14] MEDS: PANTOPRAZOLE SODIUM 40 MG/VIAL IV SCH ×2 (08:30→21:04)
[2021-07-14] MEDS: DEXTROSE 50% WATER 50ML SYRINGE IV PRN (12:49)
[2021-07-14] MEDS ORDERED: MIDAZOLAM HCL 2 MG/2 ML VIAL ONE (14:04)
[2021-07-14] MEDS ORDERED: FENTANYL CITRATE/PF 50MCG/ML 2ML VIAL ONE (14:04)
[2021-07-14] MEDS ORDERED: IODIXANOL 320MG/ML 100 ML BOTTLE IV ONE (14:05)
[2021-07-14] MEDS ORDERED: LIDOCAINE HCL 1% 20ML VIAL (Pyxis) INJ ONE (14:05)
[2021-07-14] MEDS ORDERED: HEPARIN SODIUM 1,000 UNIT/1ML VIAL IV ONE (14:16)
[2021-07-14] MEDS ORDERED: IOHEXOL-300 100 ML BOTTLE ONE (14:29)
[2021-07-14] MEDS ORDERED: DIPHENHYDRAMINE 50MG/ML VIAL ONE (15:03)
[2021-07-15] VITALS: BP 152/98
[2021-07-15] MEDS: BLOOD SUGAR DIAGNOSTIC STRIP TEST SCH ×4 (00:13→18:01)
[2021-07-15] MEDS: MORPHINE SULFATE 2 MG/ML CPJ (NOT FOR IM USE) IV PRN ×2 (01:29→09:08)
[2021-07-15 04:00] VITALS: BP 161/97
[2021-07-15] MEDS: INSULIN LISPRO 100 UNITS/ML SUBCUT SCH ×4 (06:00→18:00)
[2021-07-15] MEDS: DEXTROSE 50% WATER 50ML SYRINGE IV PRN (06:20)
[2021-07-15 08:00] VITALS: BP 143/85
[2021-07-15] MEDS: PANTOPRAZOLE SODIUM 40 MG/VIAL IV SCH ×2 (08:53→20:22)
[2021-07-15] MEDS: SUCRALFATE 1 G/10 ML UDC PO SCH ×4 (08:54→20:22)
[2021-07-15] MEDS: ONDANSETRON HCL 4MG/2ML INJ IV PRN (09:07)
[2021-07-15] MEDS: DIPHENHYDRAMINE 50MG/ML VIAL IV PRN ×2 (10:56→18:01)
[2021-07-15] MEDS ORDERED: METOPROLOL TARTRATE 25MG TABLET PO SCH (11:15)
[2021-07-15 11:26] LABS: HEMATOCRIT. 27.9 % (42.0-52.0); HEMOGLOBIN. 9.2 g/dL (14.0-18.0); MEAN CORPUSCULAR HEMOGLOBIN 28.7 pg (28.0-32.0); MEAN CORPUSCULAR VOLUME 87.1 fL (80.0-94.0); PLATELET 248 x1000/uL (130-400); RED CELL DISTRIBUTION WIDTH 15.7 % (11.6-14.6)
[2021-07-15 11:46] VITALS: BP 139/80
[2021-07-15] MEDS ORDERED: SUCR1TAB30 MT (13:29)
[2021-07-15] MEDS ORDERED: OMEP40CA12 MT (13:29)
[2021-07-15] MEDS ORDERED: LEVO250T58 MT (13:29)
[2021-07-15 16:00] VITALS: BP 140/75
[2021-07-15 17:14] LABS: HEPATITIS B SURFACE ANTIGEN NEGATIVE
[2021-07-15 18:11] LABS: PLATELET ESTIMATE NORMAL
[2021-07-15] MEDS ORDERED: CLONIDINE 0.1MG TABLET PO PRN (19:45)
[2021-07-15 20:00] VITALS: BP 131/72
[2021-07-15] MEDS: EPOETIN ALFA-EPBX 10,000 UNIT/ML VIAL SUBCUT SCH (20:22)
[2021-07-16] VITALS (9 sets, daily range): BP systolic 104–159; BP diastolic 56–99
[2021-07-16] MEDS: INSULIN LISPRO 100 UNITS/ML SUBCUT SCH ×4 (06:00→18:00)
[2021-07-16] MEDS: BLOOD SUGAR DIAGNOSTIC STRIP TEST SCH ×4 (06:39→18:39)
[2021-07-16] MEDS: PANTOPRAZOLE SODIUM 40 MG/VIAL IV SCH ×2 (09:46→20:20)
[2021-07-16] MEDS: SUCRALFATE 1 G/10 ML UDC PO SCH ×4 (09:46→20:20)
[2021-07-16 11:55] LABS: HEMATOCRIT. 28.1 % (42.0-52.0); HEMOGLOBIN. 9.2 g/dL (14.0-18.0); MEAN CORPUSCULAR HEMOGLOBIN 28.2 pg (28.0-32.0); MEAN CORPUSCULAR VOLUME 85.8 fL (80.0-94.0); MEAN PLATELET VOLUME 9.6 fl (7.4-10.4); PLATELET 238 x1000/uL (130-400); RED BLOOD CELL COUNT 3.28 mill/uL (4.7-6.1); RED CELL DISTRIBUTION WIDTH 15.7 % (11.6-14.6)
[2021-07-16 12:09] LABS: CHLORIDE 104 mEq/L (98-107)
[2021-07-16 12:50] LABS: PLATELET ESTIMATE NORMAL
[2021-07-16] MEDS: AMIODARONE HCL 200 MG TABLET PO SCH ×2 (16:46→20:19)
[2021-07-16] MEDS: TEMAZEPAM 15MG CAPSULE PO PRN (21:23)
[2021-07-17] VITALS (9 sets, daily range): BP systolic 132–148; BP diastolic 66–79
[2021-07-17] MEDS: BLOOD SUGAR DIAGNOSTIC STRIP TEST SCH ×5 (00:02→23:58)
[2021-07-17] MEDS: INSULIN LISPRO 100 UNITS/ML SUBCUT SCH ×5 (05:23→23:59)
[2021-07-17] MEDS: MORPHINE SULFATE 2 MG/ML CPJ (NOT FOR IM USE) IV PRN (05:37)
[2021-07-17] MEDS: PANTOPRAZOLE SODIUM 40 MG/VIAL IV SCH ×2 (09:11→21:30)
[2021-07-17] MEDS: AMIODARONE HCL 200 MG TABLET PO SCH ×2 (09:11→17:31)
[2021-07-17] MEDS: SUCRALFATE 1 G/10 ML UDC PO SCH ×4 (09:11→21:29)
[2021-07-17] MEDS ORDERED: NALOXONE HCL 0.4MG/ML VIAL IV PRN (16:15)
[2021-07-17] MEDS ORDERED: AMIO100T4 PO (16:44)
[2021-07-17] MEDS: TEMAZEPAM 15MG CAPSULE PO PRN (21:30)
[2021-07-17] MEDS: EPOETIN ALFA-EPBX 10,000 UNIT/ML VIAL SUBCUT SCH (21:31)
[2021-07-18] VITALS (20 sets, daily range): BP systolic 126–149; BP diastolic 60–77
[2021-07-18] MEDS: INSULIN LISPRO 100 UNITS/ML SUBCUT SCH ×4 (06:00→23:45)
[2021-07-18] MEDS: BLOOD SUGAR DIAGNOSTIC STRIP TEST SCH ×4 (06:13→23:45)
[2021-07-18] MEDS: PANTOPRAZOLE SODIUM 40 MG/VIAL IV SCH ×2 (08:16→20:27)
[2021-07-18] MEDS: SUCRALFATE 1 G/10 ML UDC PO SCH ×4 (08:16→20:27)
[2021-07-18] MEDS: AMIODARONE HCL 200 MG TABLET PO SCH ×2 (08:16→18:27)
[2021-07-18] MEDS: MORPHINE SULFATE 2 MG/ML CPJ (NOT FOR IM USE) IV PRN ×2 (12:27→20:28)
[2021-07-18 16:44] LABS: HEMATOCRIT. 27.1 % (42.0-52.0); HEMOGLOBIN. 8.9 g/dL (14.0-18.0); MEAN CORPUSCULAR HEMOGLOBIN 28.6 pg (28.0-32.0); MEAN CORPUSCULAR VOLUME 86.6 fL (80.0-94.0); MEAN PLATELET VOLUME 9.7 fl (7.4-10.4); PLATELET 293 x1000/uL (130-400); RED BLOOD CELL COUNT 3.13 mill/uL (4.7-6.1)
[2021-07-18 22:12] LABS: PLATELET ESTIMATE NORMAL
[2021-07-19 03:42] VITALS: BP 135/68
[2021-07-19] MEDS: INSULIN LISPRO 100 UNITS/ML SUBCUT SCH ×4 (05:49→23:36)
[2021-07-19] MEDS: BLOOD SUGAR DIAGNOSTIC STRIP TEST SCH ×4 (05:49→23:36)
[2021-07-19 08:00] VITALS: BP 147/71
[2021-07-19] MEDS: AMIODARONE HCL 200 MG TABLET PO SCH ×2 (08:10→17:24)
[2021-07-19] MEDS: PANTOPRAZOLE SODIUM 40 MG/VIAL IV SCH ×2 (08:10→20:10)
[2021-07-19] MEDS: SUCRALFATE 1 G/10 ML UDC PO SCH ×4 (08:10→20:10)
[2021-07-19 08:41] LABS: BASOPHILS % 0.3 % (0.0-2.0); EOSINOPHILS % 0.3 % (0.0-5.0); LYMPHOCYTES % 7.3 % (20.0-50.0); MEAN CORPUSCULAR HEMOGLOBIN 28.2 pg (28.0-32.0); MEAN CORPUSCULAR VOLUME 87.1 fL (80.0-94.0); MEAN PLATELET VOLUME 9.6 fl (7.4-10.4); MONOCYTES % 10.5 % (2.0-8.0); NEUTROPHILS % 81.6 % (40.0-76.0); PLATELET 289 x1000/uL (130-400); RED BLOOD CELL COUNT 3.21 mill/uL (4.7-6.1)
[2021-07-19 12:00] VITALS: BP 152/72
[2021-07-19 12:17] LABS: HEPATITIS B SURFACE ANTIGEN NEGATIVE
[2021-07-19] MEDS: MORPHINE SULFATE 2 MG/ML CPJ (NOT FOR IM USE) IV PRN (15:06)
[2021-07-19] MEDS: ACETAMINOPHEN 325MG TABLET PO PRN (15:39)
[2021-07-19] MEDS: ONDANSETRON HCL 4MG/2ML INJ IV PRN (15:39)
[2021-07-19 16:00] VITALS: BP 149/83
[2021-07-19 20:00] VITALS: BP 154/72
[2021-07-19] MEDS: EPOETIN ALFA-EPBX 10,000 UNIT/ML VIAL SUBCUT SCH (20:10)
[2021-07-20] VITALS (7 sets, daily range): BP systolic 106–139; BP diastolic 53–79
[2021-07-20] MEDS: INSULIN LISPRO 100 UNITS/ML SUBCUT SCH ×3 (05:46→17:40)
[2021-07-20] MEDS: BLOOD SUGAR DIAGNOSTIC STRIP TEST SCH ×3 (05:46→17:40)
[2021-07-20] MEDS: SUCRALFATE 1 G/10 ML UDC PO SCH ×4 (07:59→20:34)
[2021-07-20] MEDS: MORPHINE SULFATE 2 MG/ML CPJ (NOT FOR IM USE) IV PRN ×3 (08:00→20:33)
[2021-07-20] MEDS: AMIODARONE HCL 200 MG TABLET PO SCH ×2 (08:02→17:02)
[2021-07-20] MEDS: PANTOPRAZOLE SODIUM 40 MG/VIAL IV SCH ×2 (08:02→20:33)
[2021-07-20 09:52] LABS: HEMATOCRIT. 30.3 % (42.0-52.0); HEMOGLOBIN. 9.9 g/dL (14.0-18.0); MEAN CORPUSCULAR HEMOGLOBIN 28.2 pg (28.0-32.0); MEAN CORPUSCULAR VOLUME 86.5 fL (80.0-94.0); MEAN PLATELET VOLUME 9.8 fl (7.4-10.4); PLATELET 344 x1000/uL (130-400); RED CELL DISTRIBUTION WIDTH 15.9 % (11.6-14.6)
[2021-07-20] MEDS ORDERED: VANCOMYCIN 1250MG in DEXTROSE 5% WATER 250ML IV NR (12:00)
[2021-07-20] MEDS ORDERED: MEROPENEM 500 MG in SODIUM CHLORIDE 0.9% 50 ML IV SCH (12:00)
[2021-07-20] MEDS: ONDANSETRON HCL 4MG/2ML INJ IV PRN (15:31)
[2021-07-20] MEDS: VANCOMYCIN HCL 1000 MG/20 ML ORAL PO SCH (17:06)
[2021-07-20] MEDS ORDERED: VANCOMYCIN HCL 1000 MG/20 ML ORAL PO SCH (18:00)
[2021-07-20] MEDS: METRONIDAZOLE 500 MG PREMIX 100 ML IV SCH (20:34)
[2021-07-21] VITALS (9 sets, daily range): BP systolic 122–141; BP diastolic 53–70
[2021-07-21] MEDS: BLOOD SUGAR DIAGNOSTIC STRIP TEST SCH ×4 (00:35→18:25)
[2021-07-21] MEDS: VANCOMYCIN HCL 1000 MG/20 ML ORAL PO SCH ×4 (00:36→17:26)
[2021-07-21] MEDS: INSULIN LISPRO 100 UNITS/ML SUBCUT SCH ×4 (05:36→18:00)
[2021-07-21] MEDS: MORPHINE SULFATE 2 MG/ML CPJ (NOT FOR IM USE) IV PRN ×2 (05:45→21:45)
[2021-07-21] MEDS: SUCRALFATE 1 G/10 ML UDC PO SCH ×4 (06:31→21:23)
[2021-07-21 07:25] LABS: HEMATOCRIT. 29.8 % (42.0-52.0); HEMOGLOBIN. 9.5 g/dL (14.0-18.0); MEAN CORPUSCULAR HEMOGLOBIN 27.5 pg (28.0-32.0); MEAN CORPUSCULAR VOLUME 86.5 fL (80.0-94.0); MEAN PLATELET VOLUME 9.4 fl (7.4-10.4); PLATELET 358 x1000/uL (130-400); RED BLOOD CELL COUNT 3.44 mill/uL (4.7-6.1); RED CELL DISTRIBUTION WIDTH 16.2 % (11.6-14.6)
[2021-07-21 08:06] LABS: PLATELET ESTIMATE NORMAL
[2021-07-21] MEDS: PANTOPRAZOLE SODIUM 40 MG/VIAL IV SCH ×2 (08:10→21:22)
[2021-07-21] MEDS: AMIODARONE HCL 200 MG TABLET PO SCH ×2 (08:10→17:26)
[2021-07-21] MEDS: CEFEPIME 500 MG in DEXTROSE 5% WATER 50 ML IV SCH (08:10)
[2021-07-21] MEDS: DIPHENHYDRAMINE 50MG/ML VIAL IV PRN (08:25)
[2021-07-21] MEDS ORDERED: POTASSIUM CHLORIDE 20MEQ TABLET SR PO SCH (08:30)
[2021-07-21] MEDS: METRONIDAZOLE 500 MG PREMIX 100 ML IV SCH ×2 (09:00→21:22)
[2021-07-21] MEDS ORDERED: CEFEPIME 1,000 MG in DEXTROSE 5% WATER 50 ML IV SCH (09:00)
[2021-07-21 16:20] LABS: PLATELET ESTIMATE NORMAL
[2021-07-21 17:04] LABS: HEPATITIS B SURFACE ANTIGEN NEGATIVE
[2021-07-22] VITALS (10 sets, daily range): BP systolic 114–136; BP diastolic 55–75
[2021-07-22] MEDS: BLOOD SUGAR DIAGNOSTIC STRIP TEST SCH ×5 (00:31→23:31)
[2021-07-22] MEDS: VANCOMYCIN HCL 1000 MG/20 ML ORAL PO SCH ×5 (00:33→23:31)
[2021-07-22] MEDS: INSULIN LISPRO 100 UNITS/ML SUBCUT SCH ×5 (06:00→23:32)
[2021-07-22] MEDS: SUCRALFATE 1 G/10 ML UDC PO SCH ×4 (06:51→21:05)
[2021-07-22] MEDS: AMIODARONE HCL 200 MG TABLET PO SCH ×2 (08:30→18:15)
[2021-07-22] MEDS: PANTOPRAZOLE SODIUM 40 MG/VIAL IV SCH ×2 (08:30→20:59)
[2021-07-22] MEDS: METRONIDAZOLE 500 MG PREMIX 100 ML IV SCH ×2 (09:00→20:59)
[2021-07-22 10:34] LABS: HEMATOCRIT. 29.7 % (42.0-52.0); HEMOGLOBIN. 9.4 g/dL (14.0-18.0); MEAN CORPUSCULAR HEMOGLOBIN 27.7 pg (28.0-32.0); MEAN PLATELET VOLUME 9.5 fl (7.4-10.4); PLATELET 299 x1000/uL (130-400); RED BLOOD CELL COUNT 3.37 mill/uL (4.7-6.1); RED CELL DISTRIBUTION WIDTH 16.2 % (11.6-14.6)
[2021-07-22 16:42] LABS: PLATELET ESTIMATE NORMAL
[2021-07-22] MEDS: MORPHINE SULFATE 2 MG/ML CPJ (NOT FOR IM USE) IV PRN (18:33)
[2021-07-22] MEDS: EPOETIN ALFA-EPBX 10,000 UNIT/ML VIAL SUBCUT SCH (21:05)
[2021-07-23] VITALS: BP 124/65
[2021-07-23 04:00] VITALS: BP 136/73
[2021-07-23] MEDS: MORPHINE SULFATE 2 MG/ML CPJ (NOT FOR IM USE) IV PRN (04:53)
[2021-07-23] MEDS: BLOOD SUGAR DIAGNOSTIC STRIP TEST SCH ×2 (04:57→11:56)
[2021-07-23] MEDS: VANCOMYCIN HCL 1000 MG/20 ML ORAL PO SCH ×2 (04:57→11:57)
[2021-07-23] MEDS: INSULIN LISPRO 100 UNITS/ML SUBCUT SCH ×2 (05:03→11:56)
[2021-07-23 06:15] LABS: HEMATOCRIT. 31.5 % (42.0-52.0); MEAN CORPUSCULAR HEMOGLOBIN 27.4 pg (28.0-32.0); MEAN CORPUSCULAR VOLUME 86.3 fL (80.0-94.0); MEAN PLATELET VOLUME 9.6 fl (7.4-10.4); PLATELET 301 x1000/uL (130-400); RED BLOOD CELL COUNT 3.65 mill/uL (4.7-6.1); RED CELL DISTRIBUTION WIDTH 16.4 % (11.6-14.6)
[2021-07-23 08:00] VITALS: BP 137/68
[2021-07-23] MEDS: AMIODARONE HCL 200 MG TABLET PO SCH (08:53)
[2021-07-23] MEDS: CEFEPIME 500 MG in DEXTROSE 5% WATER 50 ML IV SCH (08:53)
[2021-07-23] MEDS: SUCRALFATE 1 G/10 ML UDC PO SCH ×2 (08:53→11:56)
[2021-07-23] MEDS: PANTOPRAZOLE SODIUM 40 MG/VIAL IV SCH (08:53)
[2021-07-23] MEDS: METRONIDAZOLE 500 MG PREMIX 100 ML IV SCH (08:53)
[2021-07-23 10:25] VITALS: BP 137/78
[2021-07-23 12:00] VITALS: BP 132/64
[2021-07-23 17:17] LABS: PLATELET ESTIMATE NORMAL
== END 2021-07-23 12:15 | DRG 853 ==
LOC: ER 13:01 → EDBEDREQ 19:33 → EDBEDREQTM 19:33 → MICUSO 21:12 → 8WST 21:42 → 5EST 07-11 00:11
PROVIDERS: ADMIT Internal Medicine; ATTEND Internal Medicine
PROC: 30233N1 Transfusion of Nonautologous Red Blood Cells into Peripheral Vein, Percutaneous Approach (ICD-10-PCS; 2021-07-08)
PROC: 5A1D70Z Performance of Urinary Filtration, Intermittent, Less than 6 Hours Per Day (ICD-10-PCS; 2021-07-09)
PROC: 0DB78ZX Excision of Stomach, Pylorus, Via Natural or Artificial Opening Endoscopic, Diagnostic (ICD-10-PCS; 2021-07-11)
PROC: 5A1D70Z Performance of Urinary Filtration, Intermittent, Less than 6 Hours Per Day (ICD-10-PCS; 2021-07-11)
PROC: 047R3ZZ Dilation of Right Posterior Tibial Artery, Percutaneous Approach (ICD-10-PCS; principal; 2021-07-14)
PROC: 047T3ZZ Dilation of Right Peroneal Artery, Percutaneous Approach (ICD-10-PCS; 2021-07-14)
PROC: 047P3ZZ Dilation of Right Anterior Tibial Artery, Percutaneous Approach (ICD-10-PCS; 2021-07-14)
PROC: B41F1ZZ Fluoroscopy of Right Lower Extremity Arteries using Low Osmolar Contrast (ICD-10-PCS; 2021-07-14)
PROC: 5A1D70Z Performance of Urinary Filtration, Intermittent, Less than 6 Hours Per Day (ICD-10-PCS; 2021-07-15)
PROC: 5A1D70Z Performance of Urinary Filtration, Intermittent, Less than 6 Hours Per Day (ICD-10-PCS; 2021-07-16)
PROC: 5A1D70Z Performance of Urinary Filtration, Intermittent, Less than 6 Hours Per Day (ICD-10-PCS; 2021-07-18)
PROC: 5A1D70Z Performance of Urinary Filtration, Intermittent, Less than 6 Hours Per Day (ICD-10-PCS; 2021-07-21)
PROC: 5A1D70Z Performance of Urinary Filtration, Intermittent, Less than 6 Hours Per Day (ICD-10-PCS; 2021-07-23)
DX: A41.9 Sepsis, unspecified organism (principal); I50.23 Acute on chronic systolic (congestive) heart failure; J18.9 Pneumonia, unspecified organism; N18.6 End stage renal disease; K26.4 Chronic or unspecified duodenal ulcer with hemorrhage; E11.52 Type 2 diabetes mellitus with diabetic peripheral angiopathy with gangrene; I13.2 Hypertensive heart and chronic kidney disease with heart failure and with stage 5 chronic kidney disease, or end stage renal disease; I42.9 Cardiomyopathy, unspecified; L03.115 Cellulitis of right lower limb; I48.92 Unspecified atrial flutter; I82.511 Chronic embolism and thrombosis of right femoral vein; D62 Acute posthemorrhagic anemia; A04.72 Enterocolitis due to Clostridium difficile, not specified as recurrent; I70.261 Atherosclerosis of native arteries of extremities with gangrene, right leg; C61 Malignant neoplasm of prostate; E11.22 Type 2 diabetes mellitus with diabetic chronic kidney disease; I27.20 Pulmonary hypertension, unspecified; I72.3 Aneurysm of iliac artery; K80.20 Calculus of gallbladder without cholecystitis without obstruction; K29.80 Duodenitis without bleeding; K25.9 Gastric ulcer, unspecified as acute or chronic, without hemorrhage or perforation; L97.509 Non-pressure chronic ulcer of other part of unspecified foot with unspecified severity; K29.70 Gastritis, unspecified, without bleeding; E78.5 Hyperlipidemia, unspecified; I08.0 Rheumatic disorders of both mitral and aortic valves; I44.7 Left bundle-branch block, unspecified; I48.91 Unspecified atrial fibrillation; R31.9 Hematuria, unspecified; N40.0 Benign prostatic hyperplasia without lower urinary tract symptoms; E83.59 Other disorders of calcium metabolism; E11.621 Type 2 diabetes mellitus with foot ulcer; Z79.4 Long term (current) use of insulin; Z79.899 Other long term (current) drug therapy; Z85.46 Personal history of malignant neoplasm of prostate; Z86.73 Personal history of transient ischemic attack (TIA), and cerebral infarction without residual deficits; Z87.19 Personal history of other diseases of the digestive system; Z99.2 Dependence on renal dialysis; Z20.822 Contact with and (suspected) exposure to COVID-19
CPT/HCPCS: 36415; 37228; 37232; 71045; 73630; 74176; 75635; 75710; 76700; 80048; 80053; 80076; 82270; 82728; 82962; 83036; 83540; 83550; 84145; 84153; 85014; 85018; 85025; 85027; 85044; 85347; 86705; 86709; 86803; 86850; 86900; 86920; 87015; 87045; 87340; 87426; 87427; 87449; 87493; 88305; 88312; 88313; 89055; 93005; 93923; 93970; 99291; A6261; C1725; C1760; C1769; C1887; C1893; C1894; C9113; J0692; J0885; J1200; J1644; J1815; J2060; J2185; J2250; J2270; J2405; J2543; J3010; J3370; J3480; J3490; J7030; J7040; J7060; P9016; P9021; Q9967; G0103